=== PATIENT | male | born 1945 | race Caucasian/White ===

== ENCOUNTER 2016-08-02 15:28 | Inpatient (IN) | payer MEDICARE ==
[~2016-08-02] VITALS: Ht 172.7 cm; Wt 57.1 kg
[~2016-08-02 15:28] MED LIST: ALBU6.7H INH; BUME1TAB26 PO; DIGO0.12 PO; GARL200T2 PO; METO-309 PO; MULT-65 PO; POTA10CA PO; SPIRCAP INH
[2016-08-02 15:39] VITALS: BP 109/80; PULSE 89; RESP 17; TEMP 97.8; O2SAT 95
[2016-08-02] MEDS ORDERED: SODIUM CHLORIDE 0.9% FLUSH 5 ML FLUSH IVF PRN ×2 (16:00→20:00)
--- NOTE | 2016-08-02 16:01 | PD ---
HPI Chief Complaint: Chest Pain Time Seen by Provider: 15:53 Travel History International Travel<30 days: No Contact w/Intl Traveler<30days: No Traveled to known affect area: No History of Present Illness HPI 70yo M with PMH of CHF, CAD, ischemic cardiomyopathy was sent here from Dr. Winkler's office for admission and plan for cardiac cath at 8:30am tomorrow. Pt states he had midsternal chest pain today and associated with sob which he always has. +Cough. Denies any fever, n/v, abdominal pain, focal weakness or numbness. Pt had echocardiogram today and was sent her because had EF of 10%. Pt took 2 sublingual nitroglycerin earlier today and states currently chest pain is resolved. Pt did not take aspirin because it causes stomach pain but has taken in before and sometimes occasionally. PFSH Past Medical History Anxiety: Yes Depression: Yes Cancer: No Cardiac Catheterization: Yes Cardiovascular Problems: Yes ([place]) Coronary Artery Disease: Yes Diabetes: No Diminished Hearing: Yes (HEARING AIDS) Diverticulitis: Yes Endocrine: No Gastrointestinal Disorders: Yes (diverticulitis) Genitourinary: Yes (urinary tract infection) Headaches: Yes Hepatitis: No Hiatal Hernia: No Hypertension: Yes Immune Disorder: No Inguinal Hernia: Yes (repaired) Musculoskeletal: Yes (osteoarthritis, previous right shoulder fracture with rotator cuff injury) Neurologic: No Psychiatric: No Reproductive: No Respiratory: Yes (COPD) Myocardial Infarction: Yes Thyroid Disease: No Past Surgical History AICD: No Cardiac Surgery: Yes (cardiac catheterization) Coronary Stent: Yes (X 2) Endocrine Surgery: Yes (parathyroid gland removed) Genitourinary Surgery: Yes (bilateral inguinal hernia repair) Joint Replacement: No Oral Surgery: Yes (tonsillectomy, teeth removed) Pacemaker: No Tonsillectomy: Yes Other Surgery: Yes (bowel resection/bladder repair) Social History Alcohol Use: Yes (1-2 GLASSES OF WINE) Tobacco Use: No (QUIT 1998) Substance Use: No Allergies-Medications (Allergen,Severity, Reaction): Coded Allergies: Warfarin (Verified Allergy, Severe, 06/28/16) FLU LIKE SYMPTOMS Xarelto (Verified Allergy, Severe, 06/28/16) FLU LIKE SYMPTOMS *MDRO Multi-Drug Resistant Organism (Verified Allergy, Unknown, 06/28/16) MRSA Uncoded Allergies: STEROID INJ (Adverse Reaction, Unknown, CONFUSION, DISORIENTATION, 12/08/13) Reported Meds & Prescriptions Reported Meds & Active Scripts Active Reported Torsemide 20 Mg Tab 20 Mg PO DAILY Garlic 200 Mg Tab 200 Mg PO DAILY Multi-Vitamin Daily (Multiple Vitamin) 1 Tab Tab 1 Tab PO DAILY Potassium Chloride ER (Potassium Chloride) 10 Meq Cap 10 Meq PO DAILY Lopressor (Metoprolol Tartrate) 50 Mg Tab 25 Mg PO DAILY Digoxin 0.125 Mg Tab 0.125 Mg PO DAILY Proventil Hfa 6.7 GM Inh (Albuterol Sulfate) 90 Mcg/Act Aer 2 Puff INH Q4-6H PRN Spiriva Handihaler (Tiotropium Inh) 18 Mcg Cap 18 Mcg INH DAILY 1 capsule = 18 mcg Review of Systems Except as stated in HPI: all other systems reviewed are Neg Physical Exam Narrative GENERAL: 70yo M not in distress. SKIN: Warm and dry. HEAD: Atraumatic. Normocephalic. EYES: Pupils equal and round. No scleral icterus. No injection or drainage. ENT: No nasal bleeding or discharge. Mucous membranes pink and moist. NECK: Trachea midline. No JVD. CARDIOVASCULAR: Regular rate and rhythm. No murmur appreciated. RESPIRATORY: No accessory muscle use. Bibasilar crackles. GASTROINTESTINAL: Abdomen soft, non-tender, nondistended. Hepatic and splenic margins not palpable. MUSCULOSKELETAL: No obvious deformities. No clubbing. No cyanosis. No edema. NEUROLOGICAL: Awake and alert. No obvious cranial nerve deficits. Motor grossly within normal limits. Normal speech. PSYCHIATRIC: Appropriate mood and affect; insight and judgment normal. Data Data Last Documented VS Vital Signs Date Time Temp Pulse Resp B/P Pulse Ox O2 Delivery O2 Flow Rate FiO2 08/02/16 19:00 81 17 104/73 96 Room Air 08/02/16 15:39 97.8 Orders Electrocardiogram (08/02/16 ) Basic Metabolic Panel (Bmp) (08/02/16 15:53) Ckmb (Isoenzyme) Profile (08/02/16 15:53) Complete Blood Count With Diff (08/02/16 15:53) Magnesium (Mg) (08/02/16 15:53) Prothrombin Time / Inr (Pt) (08/02/16 15:53) Act Partial Throm Time (Ptt) (08/02/16 15:53) Troponin I (08/02/16 15:53) Chest, Single Ap (08/02/16 15:53) Ecg Monitoring (08/02/16 15:53) Bilateral Bp Monitoring (08/02/16 15:53) Iv Access Insert/Monitor (08/02/16 15:53) Oximetry (08/02/16 15:53) Oxygen Administration (08/02/16 15:53) Sodium Chloride 0.9% Flush (Ns Flush) (08/02/16 16:00) Consult Cardiology (08/02/16 ) B-Type Natriuretic Peptide (08/02/16 16:01) Aspirin (Aspirin) (08/02/16 16:15) Diet Heart Healthy (08/02/16 Dinner) (Hub Use Only)Inp Phy Cons/Ref (08/02/16 17:34) Admit Order (Ed Use Only) (08/02/16 19:43) Labs Laboratory Tests Test 08/02/16 16:35 White Blood Count 8.8 TH/MM3 Red Blood Count 5.72 MIL/MM3 Hemoglobin 17.4 GM/DL Hematocrit 53.3 % Mean Corpuscular Volume 93.1 FL Mean Corpuscular Hemoglobin 30.4 PG Mean Corpuscular Hemoglobin 32.6 % Concent Red Cell Distribution Width 15.9 % Platelet Count 163 TH/MM3 Mean Platelet Volume 9.8 FL Neutrophils (%) (Auto) 84.8 % Lymphocytes (%) (Auto) 6.9 % Monocytes (%) (Auto) 6.4 % Eosinophils (%) (Auto) 0.9 % Basophils (%) (Auto) 1.0 % Neutrophils # (Auto) 7.4 TH/MM3 Lymphocytes # (Auto) 0.6 TH/MM3 Monocytes # (Auto) 0.6 TH/MM3 Eosinophils # (Auto) 0.1 TH/MM3 Basophils # (Auto) 0.1 TH/MM3 CBC Comment DIFF FINAL Differential Comment Prothrombin Time 12.2 SEC Prothromb Time International 1.1 RATIO Ratio Activated Partial 28.2 SEC Thromboplast Time Sodium Level 140 MEQ/L Potassium Level 4.5 MEQ/L Chloride Level 100 MEQ/L Carbon Dioxide Level 32.6 MEQ/L Anion Gap 7 MEQ/L Blood Urea Nitrogen 30 MG/DL Creatinine 1.16 MG/DL Estimat Glomerular Filtration 62 ML/MIN Rate Random Glucose 95 MG/DL Calcium Level 9.7 MG/DL Magnesium Level 2.5 MG/DL Total Creatine Kinase 46 U/L Troponin I 0.04 NG/ML B-Type Natriuretic Peptide 3968 PG/ML Digoxin Level 1.1 NG/ML MDM Medical Decision Making Medical Screen Exam Complete: Yes Emergency Medical Condition: Yes Interpretation(s) EKG: NSR 82bpm. LAD. LBBB. No concordance. Differential Diagnosis NSTEMI vs. CHF exacerbation Narrative Course 70yo M sent here for chest pain work up and plan for cardiac cath tomorrow from Dr. Winkler's office. I discussed case with Dr. Winkler and official consult placed for him. Pt is not in distress upon arrival to ED. Pt had no chest pain and speaking in complete sentences without sob. Pt given aspirin. Labs reviewed, appears dehydrated with elevated H/H and BUN. However, pt has EF of 10% and appears comfortable so did not give IVF. Troponin 0.04. BNP 3968. CXR showed streaky opacity consistent with scarring. No pulmonary edema. Discussed with admitting physician and accepted to medicine service. Diagnosis Primary Impression: CHF exacerbation Qualified Code: I50.23 - Acute on chronic systolic congestive heart failure Admitting Information Admitting Physician Requests: Admit Sia Fong DO Aug 02, 2016 16:00
--- NOTE | 2016-08-02 16:09 | RADRPT ---
EXAM DATE/TIME: 08/02/2016 15:51 [facility] COMPARISON: CHEST PA & LAT, June 28, 2016, 16:07. CHEST SINGLE AP, December 11, 2013, 12:52. INDICATIONS : Chest pain MEDICAL HISTORY : Congestive heart failure. Chronic obstructive pulmonary disease. SURGICAL HISTORY : Cardiac stents ENCOUNTER: Initial ACUITY: 1 day PAIN SCORE: 2/10 LOCATION: Bilateral chest FINDINGS: A single AP erect portable view of the chest was obtained and demonstrates mild to moderate cardiomeg adam. There is streaky opacity again noted at both lung bases most consistent with scarring. There is no perihilar edema. Atherosclerotic changes are present in the aorta. There are overlying electrocard iogram leads. The bony thorax is intact. CONCLUSION: 1. Streaky opacity of the lung bases most consistent with scarring. 2. Cardiomegaly with no evidence of pulmonary edema. Jay Mendez MD on August 02, 2016 at 16:07 Board Certified Radiologist. This report was verified electronically.
[2016-08-02 16:11] VITALS: BP_SYST 11; BP_SYST 92; BP_DIAS 63; BP_DIAS 81
[2016-08-02] MEDS ORDERED: ASPIRIN 325 MG TAB PO ONE (16:15)
[2016-08-02] MEDS ORDERED: TORS20TA PO (16:54)
[2016-08-02 17:17] LABS: AUTOMATED NEUTROPHIL # 7.4 TH/MM3 (1.8-7.7); BASOPHIL # 0.1 TH/MM3 (0-0.2); EOSINOPHIL # 0.1 TH/MM3 (0-0.4); EOSINOPHIL % 0.9 % (0.0-4.0); HEMATOCRIT 53.3 % (39.0-51.0); HEMO FLAGS DIFF FINAL; LYMPH % 6.9 % (9.0-44.0); LYMPHOCYTE # 0.6 TH/MM3 (1.0-4.8); MEAN CELL VOLUME 93.1 FL (80.0-100.0); MEAN CORPUSCULAR HEMOGLOBIN 30.4 PG (27.0-34.0); MEAN CORPUSCULAR HGB CONC 32.6 % (32.0-36.0); MONO % 6.4 % (0.0-8.0); NEUT % 84.8 % (16.0-70.0); PLATELET COUNT 163 TH/MM3 (150-450); RED BLOOD COUNT 5.72 MIL/MM3 (4.50-5.90); RED CELL DISTRIBUTION WIDTH 15.9 % (11.6-17.2); WHITE BLOOD COUNT 8.8 TH/MM3 (4.0-11.0)
[2016-08-02 17:30] LABS: BICARBONATE 32.6 MEQ/L (21.0-32.0); MAGNESIUM 2.5 MG/DL (1.5-2.5); POTASSIUM 4.5 MEQ/L (3.5-5.1)
[2016-08-02 17:34] LABS: APTT (PATIENT) 28.2 SEC (24.3-30.1); INTERNATIONAL NORMALIZED RATIO 1.1 RATIO; PROTHROMBIN TIME - PATIENT 12.2 SEC (9.8-11.6)
[2016-08-02 18:00] VITALS: BP 99/69; PULSE 80; RESP 17; O2SAT 95
[2016-08-02 19:00] VITALS: BP 104/73; PULSE 81; RESP 17; O2SAT 96
[2016-08-02] MEDS ORDERED: ALBUTEROL SULFATE 90 MCG/ACT HFA 8 GM INHALER INH PRN (20:00)
[2016-08-02] MEDS ORDERED: HEPARIN SODIUM - SQ 10,000 UNITS/ML VIAL SQ SCH (20:00)
[2016-08-02] MEDS ORDERED: SODIUM CHLORIDE 0.9% FLUSH 5 ML FLUSH IVF SCH (21:00)
[2016-08-02 21:10] VITALS: O2SAT 96
--- NOTE | 2016-08-02 21:59 | HHI.HP ---
[facility] Service [place] [facility] Primary Care Physician Sravan Aguilar, PhD, MD Admission Diagnosis Chest pain, CHF exacerbation Diagnoses: Chief Complaint: Shortness of breath, chest pain Travel History International Travel<30 Days: No Contact w/Intl Traveler <30 Da: No Traveled to Known Affected Are: No History of Present Illness 70-year-old male with a history of DC, CHF and diverticulosis presented to the ED with increasing shortness of breath and chest pain a duration of the last few weeks. Patient states for the last 2 weeks he has had shortness of breath that lasts on and off all day. He states some days are worse than others and it has caused him to be very restless. He says along with the shortness of breath he does experience chest pain that feels like intense pressure in the middle of his chest, he denies any radiation to his arm or jaw. He went to visit his nursing home aide Dr. Winkler today who sent him to the ED for a cardiac catheter in the a.m. Patient also complains of increased weight loss over the last few months, and it has also increased since being started on torsemide. He denies any appetite changes. Review of Systems Constitutional: COMPLAINS OF: Weight loss, DENIES: Fever, Chills Respiratory: COMPLAINS OF: Shortness of breath, DENIES: Cough, Wheezing, Sputum production Cardiovascular: COMPLAINS OF: Chest pain, Dyspnea on Exertion, Orthopnea, DENIES: Lower Extremity Edema Gastrointestinal: DENIES: Constipation, Diarrhea, Nausea, Vomiting Genitourinary: DENIES: Hematuria, Dysuria Musculoskeletal: DENIES: Back pain, Neck pain Integumentary: DENIES: Rash Hematologic/lymphatic: DENIES: Lymphadenopathy Immunologic/allergic: DENIES: Urticaria Neurologic: COMPLAINS OF: Localized weakness, Poor Balance, DENIES: Headache Past Family Social History Past Medical History CHF: EF 10% DC in 2008 Diverticulitis 2013 Past Surgical History Stent placement 2 Tonsillectomy Hernia repair 2 Parathyroidectomy Reported Medications Reported Meds & Active Scripts Active Reported Torsemide 20 Mg Tab 20 Mg PO DAILY Garlic 200 Mg Tab 200 Mg PO DAILY Multi-Vitamin Daily (Multiple Vitamin) 1 Tab Tab 1 Tab PO DAILY Potassium Chloride ER (Potassium Chloride) 10 Meq Cap 10 Meq PO DAILY Lopressor (Metoprolol Tartrate) 50 Mg Tab 25 Mg PO DAILY Digoxin 0.125 Mg Tab 0.125 Mg PO DAILY Proventil Hfa 6.7 GM Inh (Albuterol Sulfate) 90 Mcg/Act Aer 2 Puff INH Q4-6H PRN Spiriva Handihaler (Tiotropium Inh) 18 Mcg Cap 18 Mcg INH DAILY 1 capsule = 18 mcg Allergies: Coded Allergies: Warfarin (Verified Allergy, Severe, 06/28/16) FLU LIKE SYMPTOMS Xarelto (Verified Allergy, Severe, 06/28/16) FLU LIKE SYMPTOMS *MDRO Multi-Drug Resistant Organism (Verified Allergy, Unknown, 06/28/16) MRSA Uncoded Allergies: STEROID INJ (Adverse Reaction, Unknown, CONFUSION, DISORIENTATION, 12/08/13) Active Ordered Medications Current Medications Medications (Trade) Dose Ordered Sig/Awa Route Start Time Stop Time Status Last Admin (Proair Hfa Inh) 2 puff Q4HR PRN INH 08/02/16 20:00 (Lanoxin) 0.125 mg DAILY PO 08/03/16 09:00 (Lopressor) 25 mg DAILY PO 08/03/16 09:00 (Theragran) 1 tab DAILY PO 08/03/16 09:00 (KCl) 10 meq DAILY PO 08/03/16 09:00 (Spiriva Inh) 18 mcg DAILY INH 08/03/16 09:00 (Demadex) 20 mg DAILY PO 08/03/16 09:00 (NS Flush) 2 ml BID IVF 08/02/16 21:00 08/02/16 20:31 (NS Flush) 2 ml UNSCH PRN IVF 08/02/16 20:00 (Heparin Inj) 5,000 units Q12H SQ 08/02/16 20:00 08/02/16 20:30 Family History Dad of an unknown cancer Social History Tobacco use: 2008, prior to this he used to smoke 4ppd Alcohol use: A few beers a day, but none in the last few months Illicit drug use: Denies Physical Exam Vital Signs Vital Signs Date Time Temp Pulse Resp B/P Pulse Ox O2 Delivery O2 Flow Rate FiO2 08/02/16 21:10 96 21 08/02/16 19:00 81 17 104/73 96 Room Air 08/02/16 18:00 80 17 99/69 95 08/02/16 16:11 111/81 92/63 08/02/16 15:39 97.8 89 17 109/80 95 Physical Exam GENERAL: This is a well-nourished, well-developed patient, in no apparent distress. SKIN: No rashes, ecchymoses or lesions. Cool and dry. HEAD: Atraumatic. Normocephalic. EYES: Pupils equal round and reactive. ENT: Nose without bleeding, purulent drainage or septal hematoma. Airway patent. NECK: Trachea midline. No JVD CARDIOVASCULAR: Regular rate and rhythm without murmurs, gallops, or rubs. RESPIRATORY: Left lower base crackles, No wheezes, rales, or rhonchi. GASTROINTESTINAL: Abdomen soft, non-tender, nondistended. MUSCULOSKELETAL: Extremities without clubbing, cyanosis, or edema. No joint tenderness, effusion, or edema noted. No calf tenderness. NEUROLOGICAL: Awake and alert. Motor and sensory grossly within normal limits.Normal speech. Laboratory Laboratory Tests Test 08/02/16 16:35 White Blood Count 8.8 Red Blood Count 5.72 Hemoglobin 17.4 Hematocrit 53.3 Mean Corpuscular Volume 93.1 Mean Corpuscular Hemoglobin 30.4 Mean Corpuscular Hemoglobin 32.6 Concent Red Cell Distribution Width 15.9 Platelet Count 163 Mean Platelet Volume 9.8 Neutrophils (%) (Auto) 84.8 Lymphocytes (%) (Auto) 6.9 Monocytes (%) (Auto) 6.4 Eosinophils (%) (Auto) 0.9 Basophils (%) (Auto) 1.0 Neutrophils # (Auto) 7.4 Lymphocytes # (Auto) 0.6 Monocytes # (Auto) 0.6 Eosinophils # (Auto) 0.1 Basophils # (Auto) 0.1 CBC Comment DIFF FINAL Differential Comment Prothrombin Time 12.2 Prothromb Time International 1.1 Ratio Activated Partial 28.2 Thromboplast Time Sodium Level 140 Potassium Level 4.5 Chloride Level 100 Carbon Dioxide Level 32.6 Anion Gap 7 Blood Urea Nitrogen 30 Creatinine 1.16 Estimat Glomerular Filtration 62 Rate Random Glucose 95 Calcium Level 9.7 Magnesium Level 2.5 Total Creatine Kinase 46 Troponin I 0.04 B-Type Natriuretic Peptide 3968 Result Diagram: 08/02/16 1635 08/02/16 1635 Imaging Last Impressions Chest X-Ray 08/02/16 1553 Signed Impressions: Service Date/Time: July 15:51 - CONCLUSION: 1. Streaky opacity of the lung bases most consistent with scarring. 2. Cardiomegaly with no evidence of pulmonary edema. Jay Mendez MD Assessment and Plan Problem List: (1) CHF exacerbation ICD Code: I50.9 Status: Acute Assessment and Plan 70 with a history of CHF, DC and diverticulitis presented with: Coronary artery disease/acute on chronic systolic CHF Exacerbation Images reviewed chest x-ray shows streaky opacity of the lung bases most consistent with scarring. Cardiomegaly with no evidence of pulmonary edema. Labs reviewed BNP 3968 -Consult Dr. Winkler for cardiac catheter in a.m. -Nothing by mouth -Reorder home medications torsemide, metoprolol. Hold off on further IV diuretics given borderline low blood pressure. DVT prophylaxis: Heparin Written by Mitzi PIKE, acting as scribe for Dr. Mendieta on 08/02/16 at 2048. The documentation accurately reflects the work performed [id number] by me on 08/03/16 at 2048. Code Status Full Discussed Condition With Patient Physician Certification 2 Midnight Certification Type: Admission for Inpatient Services Order for Inpatient Services The services are ordered in accordance with Medicare regulations or non- Medicare payer requirements, as applicable. In the case of services not specified as inpatient-only, they are appropriately provided as inpatient services in accordance with the 2-midnight benchmark. Estimated LOS (days): 2 days is the estimated time the patient will need to remain in the hospital, assuming treatment plan goals are met and no additional complications. Post-Hospital Plan: Home Problem Qualifiers (1) CHF exacerbation: Qualified Code: I50.23 - Acute on chronic systolic congestive heart failure Mitzi Ferguson Aug 02, 2016 21:59 Danielito Mendieta MD Aug 03, 2016 03:16
[2016-08-03] VITALS (13 sets, daily range): BP systolic 86–111; BP diastolic 60–85; PULSE 86–106; RESP 16–18; TEMP 97.5–98.8; O2SAT 93–99
[2016-08-03 05:08] LABS: HEMATOCRIT 49.6 % (39.0-51.0); MEAN CELL VOLUME 93.8 FL (80.0-100.0); MEAN CORPUSCULAR HEMOGLOBIN 30.4 PG (27.0-34.0); MEAN CORPUSCULAR HGB CONC 32.4 % (32.0-36.0); PLATELET COUNT 151 TH/MM3 (150-450); RED BLOOD COUNT 5.29 MIL/MM3 (4.50-5.90); RED CELL DISTRIBUTION WIDTH 15.7 % (11.6-17.2); REVIEW FLAG FINAL; WHITE BLOOD COUNT 9.5 TH/MM3 (4.0-11.0)
[2016-08-03 05:21] LABS: BICARBONATE 26.7 MEQ/L (21.0-32.0); POTASSIUM 4.7 MEQ/L (3.5-5.1)
[2016-08-03] MEDS ORDERED: SODIUM CHLOR 0.9% 1000 ML INJ 1,000 ML IV SCH ×2 (07:04→10:00)
[2016-08-03] MEDS ORDERED: DIAZEPAM 5 MG TAB PO SCH (07:15)
[2016-08-03] MEDS ORDERED: diphenhydrAMINE HCL 50 MG CAP PO SCH (07:15)
[2016-08-03] MEDS ORDERED: PILL SPLITTER OTHER PRN (07:30)
[2016-08-03] MEDS ORDERED: MIDAZOLAM HCL 2 MG/2 ML VIAL ONE (08:36)
[2016-08-03] MEDS ORDERED: METOPROLOL TARTRATE 25 MG TAB PO SCH (09:00)
[2016-08-03] MEDS ORDERED: ONDANSETRON HCL 4 MG/2 ML VIAL IV PRN (09:45)
[2016-08-03] MEDS ORDERED: SODIUM CHLORIDE 0.9% FLUSH 5 ML FLUSH IVF PRN (09:45)
[2016-08-03] MEDS ORDERED: MISC INFORMATION XX ONE (09:45)
--- NOTE | 2016-08-03 09:46 | MB ---
cc: NAOMI COLLAZO M.D. DATE OF CONSULTATION 08/03/2016 REASON FOR CONSULTATION Evaluation of angina. CHIEF COMPLAINT Chest pain HISTORY OF PRESENT ILLNESS Jaron Sandoval a 70-year-old man with known ischemic heart disease. He is referred to me by Dr. Karsten Aguilar for CHF. I was able to get him out of CHF with medications. He had an echo done in my office yesterday showing an ejection fraction of only 10%. Of concern, the patient started having angina a month ago and in the past two weeks has been having angina at rest on a daily basis described as a severe pressure in the center of his chest associated with shortness of breath. The patient has a history an old myocardial infarction in 2008 with a PTCA and stent. We do not have any further records than that. PAST MEDICAL HISTORY Includes: 1. CHF 2. Coronary artery disease 3. Deep vein thrombosis 4. Diverticula 5. Ischemic cardiomyopathy with EF only 10% 6. Left bundle-branch block 7. Had a MRSA infection July 2013. 8. Myocardial infarction 2008 9. Previous pulmonary embolism 10. COPD PAST SURGICAL HISTORY Includes: 1. Bladder revision 2. Bowel resection July 2013 3. Fistula repair 4. Hernia repair 5. Parathyroidectomy 6. Stent in 2008 7. Tonsillectomy ALLERGIES Include STEROIDS, WARFARIN AND XARELTO WHICH LEAD TO ITCHING. MEDICATIONS Include: 1. Aspirin 81 mg 2. Digoxin 0.125 mg 1/2 tablet every other day 3. Metoprolol 12-1/2 mg b.i.d. 4. Torsemide 20 mg daily 5. Proventil inhaler 6. Spiriva inhaler FAMILY HISTORY Positive for cancer in the father. SOCIAL HISTORY The patient smoked from age 12 to 63. He is retired. He is and lives with a significant other. He spent six years in the [employer]. REVIEW OF SYSTEMS Notable for weight loss, otherwise unremarkable. PHYSICAL EXAM Physical exam reveals a thin white male in no acute distress. VITAL SIGNS: Charted. Blood pressure runs low typically 90s. HEENT: Exam is unremarkable. NECK: Exam shows moderate JVD. CHEST: Clear to auscultation. CARDIAC: Exam shows a left parasternal lift. There is a soft S1 normal S2, regular rate and rhythm. There is a soft S3 present and a grade 2/6 systolic murmur. ABDOMEN: Soft and nontender. EXTREMITIES: No clubbing, cyanosis or edema. EKG shows left bundle-branch block. His lab work, initial hematocrit of 53.3, 49.6 on repeat. Troponin was 0.04. BNP elevated at 396. BUN 36, creatinine 1.04. Digoxin level 1.1. Chest x-ray is showing streaky opacity in the lung bases most consistent with scarring, cardiomegaly without evidence of pulmonary edema. IMPRESSION This is a 70-year-old man with extremely severe LV dysfunction now having severe angina at rest, i.e. class IV angina. He has class III-IV CHF as well. PLAN Diagnostic cath, possible intervention. Informed consent has been obtained. Further therapy to be determined. MD JIMBO Hernandez/REZA /8:44 AM /9:28 AM
--- NOTE | 2016-08-03 09:56 | MA ---
cc: NAOMI COLLAZO M.D., WESLEY M.D. DATE 08/03/2016 PROCEDURE PERFORMED Left heart catheterization, left ventriculography, coronary angiography BRIEF HISTORY Jaron Sandoval is a 70-year-old man who had an acute myocardial infarction in 2008 with bifurcation stenting of the LAD and diagonal. He came to see me for severe CHF. His CHF is now compensated. Echo done yesterday showed an EF of only 10%. He has been having two weeks of rest angina. Troponin was normal. DESCRIPTION OF PROCEDURE The patient was brought to the cardiac mason tender restoration labor in a fasting state. The right groin was prepped and draped in a sterile fashion. Using 1% lidocaine for local anesthesia, a 6-1/2 German sheath was easily inserted into the right femoral artery. Left ventricular pressure was then recorded using a pigtail catheter followed by ventriculography and then a pullback. Coronary angiography was completed using a left 4.5 Sarah for the left coronary artery and a 3DRC for the right coronary artery. Films were studied. Medical therapy was elected. Angiography of the right femoral artery was obtained via the sheath followed by an uncomplicated Angio-Seal closure. There were no complications. FINDINGS HEMODYNAMICS Left ventricular pressure is 93/8 with an end-diastolic pressure elevated at 21. Aortic pressure is 95/70 with a mean of 82. LEFT VENTRICULOGRAPHY Left ventriculography shows a massively dilated left ventricle that is somewhat spherically shaped with severe global hypokinesis. The worst segment is the anterolateral segment which is akinetic. CORONARY ANGIOGRAPHY 1. The left main coronary artery appears normal. It bifurcates into the LAD and circumflex vessels. 2. The LAD has some smooth proximal narrowing in the 30-40% range. Inside a previously placed stent, the diagonal branch was also stented up to the ostium. The ostium of the diagonal branch has 60-70% stenosis. The LAD and its mid to distal segment has a second 40% stenosis. The diagonal branch demonstrates 20-30% mid disease and has a bifurcation. 3. The circumflex artery has proximal irregularities in the 25% range. 4. The right coronary artery is dominant. This vessel has a 40% proximal stenosis just beyond a bend and just after the first of two acute marginal branches. There is also some additional 25% disease in the late proximal and early mid right coronary vessel. Distally, the right coronary artery has 25% irregularities. The right coronary artery is dominant and gives off a large posterior descending artery and posterolateral branches which are free of disease. CONCLUSION 1. Elevated left ventricular end-diastolic pressure. 2. Critically impaired LV function. 3. Mild to moderate coronary artery disease. The worst being the ostial diagonal branch for which medical therapy was elected. PLAN Medical management of his coronary disease. He needs a biventricular AICD because he has a left bundle-branch block, class IV heart failure, and is on maximal medical therapy with inability to add further medications due to low blood pressure. We will consult Dr. Ruiz for biventricular AICD. MD JIMBO Hernandez/REZA /9:27 AM /9:42 AM
[2016-08-03] MEDS ORDERED: IOHEXOL 350 MG/ML 100 ML BTL (for Cath Lab) OTHER ONE (10:02)
--- NOTE | 2016-08-03 11:29 | HHI.PR ---
Subjective Remarks had cardiac cath earlier today. now resting comfortably with no distress. no sob. minimal chest discomfort. Objective Vitals Vital Signs Date Time Temp Pulse Resp B/P Pulse Ox O2 Delivery O2 Flow Rate FiO2 08/03/16 07:20 95 Room Air 08/03/16 07:20 92 18 95/74 95 Room Air 08/03/16 04:30 90 16 93/67 97 Room Air 08/03/16 00:30 92 16 98/71 96 Room Air 08/02/16 21:10 96 21 08/02/16 19:00 81 17 104/73 96 Room Air 08/02/16 18:00 80 17 99/69 95 08/02/16 16:11 111/81 92/63 08/02/16 15:39 97.8 89 17 109/80 95 I/O 08/02/16 08/02/16 08/02/16 08/03/16 08/03/16 08/03/16 07:00 15:00 23:00 07:00 15:00 23:00 Output Total 200 ml Balance -200 ml Output Urine Total 200 ml # Voids 1 Result Diagram: 08/03/16 0430 08/03/16 0430 Imaging Last Impressions Chest X-Ray 08/02/16 1553 Signed Impressions: Service Date/Time: July 15:51 - CONCLUSION: 1. Streaky opacity of the lung bases most consistent with scarring. 2. Cardiomegaly with no evidence of pulmonary edema. Jay Mendez MD Objective Remarks GENERAL: This is a well-nourished, well-developed patient, in no apparent distress. CARDIOVASCULAR: Regular rate and regular rhythm without murmurs, gallops, or rubs. RESPIRATORY: Clear to auscultation. Breath sounds equal bilaterally. No wheezes , rales, or rhonchi. GASTROINTESTINAL: Abdomen soft, non-tender, nondistended. Normal, active bowel sounds MUSCULOSKELETAL: Extremities without clubbing, cyanosis, or edema. NEURO: Alert & Oriented x4 to person, place, time, situation. Moves all ext x4 Procedures cardiac cath. Medications and IVs Current Medications IV Flush (NS Flush) 2 ml UNSCH PRN IVF FLUSH AFTER USING IV ACCESS; Start 08/02 at 16:00; Stop 08/02/16 at 20:00; Status DC Aspirin (Aspirin) 325 mg ONCE ONCE PO Last administered on 08/02/16 16:59; Start 08/02/16 at 16:15; Stop 08/02/16 at 16:16; Status DC Albuterol Sulfate (Proair Hfa Inh) 2 puff Q4HR PRN INH SHORTNESS OF BREATH; Start 08/02/16 at 20:00 Digoxin (Lanoxin) 0.125 mg DAILY PO ; Start 08/03/16 at 09:00 Metoprolol Tartrate (Lopressor) 25 mg DAILY PO ; Start 08/03/16 at 09:00; Stop 08/03/16 at 09:00; Status DC Multivitamins (Theragran) 1 tab DAILY PO ; Start 08/03/16 at 09:00 Potassium Chloride (KCl) 10 meq DAILY PO ; Start 08/03/16 at 09:00 Tiotropium [place] (Spiriva Inh) 18 mcg DAILY INH ; Start 08/03/16 at 09:00 Torsemide (Demadex) 20 mg DAILY PO ; Start 08/03/16 at 09:00 IV Flush (NS Flush) 2 ml BID IVF Last administered on 08/02/16 20:31; Start at 21:00; Stop 08/03/16 at 10:08; Status DC IV Flush (NS Flush) 2 ml UNSCH PRN IVF FLUSH AFTER USING IV ACCESS; Start 08/02 at 20:00; Stop 08/03/16 at 10:08; Status DC Heparin Sodium (Porcine) (Heparin Inj) 5,000 units Q12H SQ Last administered on 08/02/16 20:30; Start 08/02/16 at 20:00; Stop 08/03/16 at 10:10; Status DC Metoprolol Tartrate (Lopressor) 12.5 mg BID PO ; Start 08/03/16 at 09:00 Nitroglycerin 0.5 inch 0.5 inch Q8HR TOPICAL ; Start 08/03/16 at 14:00 Sodium Chloride (NS 1000 ml Inj) 1,000 ml @ 30 mls/hr Q24H IV ; Start 08/03/16 at 07:04; Stop 08/03/16 at 10:08; Status DC Diphenhydramine HCl (Benadryl) 25 mg STEAM BONE PRESS TENDER PO ; Start 08/03/16 at 07:15; Stop 08/07/16 at 07:14 Diazepam (Valium) 5 mg STEAM BONE PRESS TENDER PO ; Start 08/03/16 at 07:15; Stop 08/07/16 at 07:14 Miscellaneous (Pill Splitter) 1 ea UNSCH PRN OTHER SEE LABEL COMMENTS; Start at 07:30 Midazolam HCl 2 mg 2 mg STK-MED ONCE .ROUTE Last administered on 08/03/16t 08: 36; Start 08/03/16 at 08:36; Stop 08/03/16 at 08:37; Status DC Sodium Chloride (NS 1000 ml Inj) 1,000 ml @ 83 mls/hr Q12H3M IV ; Start at 10:00; Stop 08/03/16 at 10:09; Status DC IV Flush (NS Flush) 2 ml BID IVF ; Start 08/03/16 at 21:00 IV Flush (NS Flush) 2 ml UNSCH PRN IVF FLUSH AFTER USING IV ACCESS; Start 08/03 at 09:45 Miscellaneous Information 1 ONCE ONCE XX ; Start 08/03/16 at 09:45; Stop at 10:09; Status DC Ondansetron HCl (Zofran Inj) 4 mg Q4H PRN IV NAUSEA; Start 08/03/16 at 09:45 Iohexol (OMNIPAQUE 350 INJ (Medical Chemist)) 100 ml STK-MED ONCE OTHER ; Start at 10:02; Stop 08/03/16 at 10:03; Status DC A/P Assessment and Plan A/P Coronary artery disease/acute on chronic systolic CHF Exacerbation Images reviewed chest x-ray shows streaky opacity of the lung bases most consistent with scarring. Cardiomegaly with no evidence of pulmonary edema. -s/p cardiac cath with mild to moderate coronary artery disease -resumed home medications torsemide, metoprolol and digoxin. Hold off on further IV diuretics given borderline low blood pressure. - consulted for AICD placement DVT prophylaxis: Heparin on hold for procedures. Jimmy Gatica MD Aug 03, 2016 11:29
[2016-08-03] MEDS: NITROGLYCERIN 2% OINT 1 GM PACKET TOPICAL SCH ×2 (14:00→20:10)
[2016-08-03] MEDS: SODIUM CHLORIDE 0.9% FLUSH 5 ML FLUSH IVF SCH (20:10)
[2016-08-03] MEDS: METOPROLOL TARTRATE 25 MG TAB PO SCH (20:10)
--- NOTE | 2016-08-03 22:53 | EKG ---
Date Performed: 08/02/2016 Time Performed: 15:54:16 PTAGE: 70 years EKG: Sinus rhythm LEFT ATRIAL ENLARGEMENT MARKED LEFT AXIS DEVIATION LEFT BUNDLE BRANCH BLOCK ABNORMAL ECG PREVIOUS TRACING : 06/28/2016 17.44 DOCTOR: Faisal Ruiz Interpretating Date/Time 08/03/2016 22:47:38
[2016-08-04] VITALS (27 sets, daily range): BP systolic 80–101; BP diastolic 41–76; PULSE 66–100; RESP 16–19; TEMP 97.7–98.2; O2SAT 94–96
[2016-08-04] MEDS: NITROGLYCERIN 2% OINT 1 GM PACKET TOPICAL SCH ×4 (04:11→21:29)
[2016-08-04 04:58] LABS: AUTOMATED NEUTROPHIL # 6.2 TH/MM3 (1.8-7.7); BASOPHIL # 0.1 TH/MM3 (0-0.2); BASOPHIL % 1.4 % (0.0-2.0); EOSINOPHIL # 0.2 TH/MM3 (0-0.4); HEMO FLAGS DIFF FINAL; LYMPH % 10.1 % (9.0-44.0); LYMPHOCYTE # 0.8 TH/MM3 (1.0-4.8); MEAN CELL VOLUME 93.2 FL (80.0-100.0); MEAN CORPUSCULAR HEMOGLOBIN 30.7 PG (27.0-34.0); MEAN CORPUSCULAR HGB CONC 32.9 % (32.0-36.0); MONO % 9.3 % (0.0-8.0); NEUT % 77.2 % (16.0-70.0); PLATELET COUNT 137 TH/MM3 (150-450); RED BLOOD COUNT 5.25 MIL/MM3 (4.50-5.90)
[2016-08-04 05:24] LABS: BICARBONATE 30.2 MEQ/L (21.0-32.0); POTASSIUM 4.3 MEQ/L (3.5-5.1)
--- NOTE | 2016-08-04 07:06 | MB ---
cc: JESSICA BURT M.D. DATE OF CONSULTATION: 08/03/2016 REASON FOR CONSULTATION: Congestive heart failure for electrophysiology study and biventricular pacer, defibrillator insertion. Mr. Sandoval is a 70-year-old gentleman with history of coronary artery disease, coronary bypass grafting, a ejection fraction of 10%, previous myocardial infarction in 2008. Since then the patient manages a very low ejection fraction. Because of blood pressure apparently medication can be of titrate. He was admitted due to chest pain, left heart catheterization was done by Dr. Winkler, that indicated no significant occlusion. I was consulted for further evaluation and management. The chart was reviewed. The patient was evaluated. ALLERGIES WASPS IRON XARELTO SOCIAL HISTORY currently negative for smoking. FAMILY HISTORY Noncontributory to his current medical condition. MEDICATIONS AT HOME He was on 1. Aspirin. 2. Digoxin. 3. Metoprolol 4. Torsemide 5. Spiriva inhaler. REVIEW OF SYSTEMS Refers shortness of breath on minimal activity but no chest pain or discomfort. No fever. PHYSICAL EXAMINATION: IN GENERAL: Physical exam, fully oriented. VITAL SIGNS: His blood pressure is 99/79, pulse 86, respiratory rate 20. LUNGS: Ventilated CARDIOVASCULAR SYSTEM: S1-S2 regular, episode of tachycardia. ABDOMEN: Soft. No mass. EXTREMITIES: No edema. RADIOLOGIC: Electrocardiogram sinus rhythm. The left bundle-branch block, PVCs, QRS around 140 milliseconds. LABORATORY DATA Hemoglobin 601, white blood cell 9.5, potassium 4.7, creatinine 1.04. BNP close to 4000, INR 1.1. ASSESSMENT AND RECOMMENDATIONS Mr. Sandoval has congestive heart failure, cardiomyopathy. Gentleman is not an ZEINAB Peter because unable to tolerate that because of blood pressure. He can tolerate metoprolol 12.5 mg a day with just add yesterday 12.5 mg twice a day. He has heart failure for years. He is on optimal medical management he can tolerate. He is a very high risk for sudden . Ejection fraction is 10%. The gentleman going need a electrophysiology study and biventricular pacer defibrillator implantation for sudden prevention and resynchronization therapy. The risks, the nature and the benefit of the procedure are clearly stated to him. The risks include pneumothorax, cardiac perforation, stroke and even . He understands and agreed to proceed. I am going to initiate also at a lower dose once a day instead of twice a day. If she can maintain systolic blood pressure above 90 then I will switch to twice a day. Sia melgar is off care. Prognosis guarded. I will monitor him during hospitalization. MD KATHERINE Betancourt/stewart /5:23 PM /6:54 AM
[2016-08-04] MEDS: DIGOXIN 0.125 MG TAB PO SCH (08:48)
[2016-08-04] MEDS: METOPROLOL TARTRATE 25 MG TAB PO SCH ×2 (08:48→21:00)
[2016-08-04] MEDS: TORSEMIDE 20 MG TAB PO SCH (08:49)
[2016-08-04] MEDS: SACUBITRIL/VALSARTAN 24 MG-26 MG TAB PO SCH (08:49)
[2016-08-04] MEDS: MULTIVITAMIN TAB PO SCH (08:51)
[2016-08-04] MEDS: SODIUM CHLORIDE 0.9% FLUSH 5 ML FLUSH IVF SCH ×2 (08:52→21:00)
[2016-08-04] MEDS: POTASSIUM CHLORIDE 10 MEQ CAP PO SCH (08:52)
[2016-08-04] MEDS: TIOTROPIUM BROMIDE 18 MCG INH INH SCH (09:46)
--- NOTE | 2016-08-04 10:13 | PD.CARD.PN ---
Subjective Subjective Remarks No chest pain, no shortness of breath Objective Medications Current Medications Medications (Trade) Dose Ordered Sig/Awa Route Start Time Stop Time Status Last Admin (Proair Hfa Inh) 2 puff Q4HR PRN INH 08/02/16 20:00 (Lanoxin) 0.125 mg DAILY PO 08/03/16 09:00 08/04/16 08:48 (Theragran) 1 tab DAILY PO 08/03/16 09:00 08/04/16 08:51 (KCl) 10 meq DAILY PO 08/03/16 09:00 08/04/16 08:52 (Spiriva Inh) 18 mcg DAILY INH 08/03/16 09:00 08/04/16 09:46 (Demadex) 20 mg DAILY PO 08/03/16 09:00 08/04/16 08:49 (Lopressor) 12.5 mg BID PO 08/03/16 09:00 08/04/16 08:48 (Nitroglycerin 2% Oint) 0.5 inch Q8HR TOPICAL 08/03/16 14:00 08/03/16 14:00 (Pill Splitter) 1 ea UNSCH PRN OTHER 08/03/16 07:30 (Zofran Inj) 4 mg Q4H PRN IV 08/03/16 09:45 (Entresto 24-26 Mg) 1 tab DAILY PO 08/04/16 09:00 08/04/16 08:49 Vital Signs / I&O Vital Signs Date Time Temp Pulse Resp B/P Pulse Ox O2 Delivery O2 Flow Rate FiO2 08/04/16 07:00 84 08/04/16 06:00 84 08/04/16 05:00 86 08/04/16 04:00 87 08/04/16 03:00 86 08/04/16 03:00 97.7 85 16 90/50 94 08/04/16 02:00 88 08/04/16 01:00 87 08/04/16 00:00 84 08/03/16 23:00 89 08/03/16 23:00 98.1 89 16 86/60 94 08/03/16 22:00 94 08/03/16 21:08 95 08/03/16 21:00 97 08/03/16 20:00 98 08/03/16 19:00 106 08/03/16 19:00 98.8 97 16 111/73 96 08/03/16 18:40 18 106/76 94 08/03/16 15:20 97.7 86 18 99/79 93 08/03/16 14:20 97.8 95 18 109/85 95 08/03/16 13:34 97.5 89 18 100/72 99 I/O 08/03/16 08/03/16 08/03/16 08/04/16 08/04/16 08/04/16 07:00 15:00 23:00 07:00 15:00 23:00 Intake Total 930 ml 240 ml Output Total 200 ml Balance -200 ml 930 ml 240 ml Intake Oral 480 ml 240 ml IV Total 450 ml Output Urine Total 200 ml # Voids 1 5 2 Physical Exam GENERAL: NAD SKIN: Warm and dry. HEAD: Atraumatic. Normocephalic. EYES: Pupils equal and round. No scleral icterus. No injection or drainage. ENT: No nasal bleeding or discharge. Mucous membranes pink and moist. NECK: Trachea midline. No JVD. CARDIOVASCULAR: Regular rate and rhythm. RESPIRATORY: No accessory muscle use. Minimal rales lower lobes GASTROINTESTINAL: Abdomen soft, non-tender, nondistended. Hepatic and splenic margins not palpable. MUSCULOSKELETAL: Extremities without clubbing, cyanosis, or edema. No obvious deformities. NEUROLOGICAL: Awake and alert. No obvious cranial nerve deficits. Motor grossly within normal limits. Five out of 5 muscle strength in the arms and legs. Normal speech. PSYCHIATRIC: Appropriate mood and affect; insight and judgment normal. Laboratory Laboratory Tests Test 08/04/16 04:27 White Blood Count 8.0 TH/MM3 Red Blood Count 5.25 MIL/MM3 Hemoglobin 16.1 GM/DL Hematocrit 49.0 % Mean Corpuscular Volume 93.2 FL Mean Corpuscular Hemoglobin 30.7 PG Mean Corpuscular Hemoglobin 32.9 % Concent Red Cell Distribution Width 16.0 % Platelet Count 137 TH/MM3 Mean Platelet Volume 9.5 FL Neutrophils (%) (Auto) 77.2 % Lymphocytes (%) (Auto) 10.1 % Monocytes (%) (Auto) 9.3 % Eosinophils (%) (Auto) 2.0 % Basophils (%) (Auto) 1.4 % Neutrophils # (Auto) 6.2 TH/MM3 Lymphocytes # (Auto) 0.8 TH/MM3 Monocytes # (Auto) 0.7 TH/MM3 Eosinophils # (Auto) 0.2 TH/MM3 Basophils # (Auto) 0.1 TH/MM3 CBC Comment DIFF FINAL Differential Comment Sodium Level 141 MEQ/L Potassium Level 4.3 MEQ/L Chloride Level 105 MEQ/L Carbon Dioxide Level 30.2 MEQ/L Anion Gap 6 MEQ/L Blood Urea Nitrogen 39 MG/DL Creatinine 1.07 MG/DL Estimat Glomerular Filtration 68 ML/MIN Rate Random Glucose 95 MG/DL Calcium Level 9.0 MG/DL Assessment and Plan Problem List: (1) CHF (congestive heart failure) (2) Heart failure, systolic, acute on chronic (3) Coronary artery disease (4) Shortness of breath (5) History of [place] (myocardial infarction) Assessment and Plan 1) Acute on chronic systolic heart failure, EF 10% 2) For Bi-V ICD on Saturday 3) Mild-moderate CAD Mitesh Gonzalez DO Aug 04, 2016 10:13
--- NOTE | 2016-08-04 11:44 | HHI.PR ---
Subjective Remarks sitting on the chair with no distress. no chest pain or sob. d/w the RN. Objective Vitals Vital Signs Date Time Temp Pulse Resp B/P Pulse Ox O2 Delivery O2 Flow Rate FiO2 08/04/16 07:00 98.2 83 19 101/76 96 08/04/16 07:00 84 08/04/16 06:00 84 08/04/16 05:00 86 08/04/16 04:00 87 08/04/16 03:00 86 08/04/16 03:00 97.7 85 16 90/50 94 08/04/16 02:00 88 08/04/16 01:00 87 08/04/16 00:00 84 08/03/16 23:00 89 08/03/16 23:00 98.1 89 16 86/60 94 08/03/16 22:00 94 08/03/16 21:08 95 08/03/16 21:00 97 08/03/16 20:00 98 08/03/16 19:00 106 08/03/16 19:00 98.8 97 16 111/73 96 08/03/16 18:40 18 106/76 94 08/03/16 15:20 97.7 86 18 99/79 93 08/03/16 14:20 97.8 95 18 109/85 95 08/03/16 13:34 97.5 89 18 100/72 99 I/O 08/03/16 08/03/16 08/03/16 08/04/16 08/04/16 08/04/16 07:00 15:00 23:00 07:00 15:00 23:00 Intake Total 930 ml 240 ml Output Total 200 ml Balance -200 ml 930 ml 240 ml Intake Oral 480 ml 240 ml IV Total 450 ml Output Urine Total 200 ml # Voids 1 5 2 Result Diagram: 08/04/16 0427 08/04/16 0427 Imaging Last Impressions Chest X-Ray 08/02/16 1553 Signed Impressions: Service Date/Time: July 15:51 - CONCLUSION: 1. Streaky opacity of the lung bases most consistent with scarring. 2. Cardiomegaly with no evidence of pulmonary edema. Jay Mendez MD Objective Remarks GENERAL: This is a well-nourished, well-developed patient, in no apparent distress. CARDIOVASCULAR: Regular rate and regular rhythm without murmurs, gallops, or rubs. RESPIRATORY: Clear to auscultation. Breath sounds equal bilaterally. No wheezes , rales, or rhonchi. GASTROINTESTINAL: Abdomen soft, non-tender, nondistended. Normal, active bowel sounds MUSCULOSKELETAL: Extremities without clubbing, cyanosis, or edema. NEURO: Alert & Oriented x4 to person, place, time, situation. Moves all ext x4 Procedures cardiac cath. Medications and IVs Current Medications IV Flush (NS Flush) 2 ml UNSCH PRN IVF FLUSH AFTER USING IV ACCESS; Start 08/02 at 16:00; Stop 08/02/16 at 20:00; Status DC Aspirin (Aspirin) 325 mg ONCE ONCE PO Last administered on 08/02/16 16:59; Start 08/02/16 at 16:15; Stop 08/02/16 at 16:16; Status DC Albuterol Sulfate (Proair Hfa Inh) 2 puff Q4HR PRN INH SHORTNESS OF BREATH; Start 08/02/16 at 20:00 Digoxin (Lanoxin) 0.125 mg DAILY PO Last administered on 08/04/16 08:48; Start 08/03/16 at 09:00 Metoprolol Tartrate (Lopressor) 25 mg DAILY PO ; Start 08/03/16 at 09:00; Stop 08/03/16 at 09:00; Status DC Multivitamins (Theragran) 1 tab DAILY PO Last administered on 08/04/16 08:51; Start 08/03/16 at 09:00 Potassium Chloride (KCl) 10 meq DAILY PO Last administered on 08/04/16 08:52; Start 08/03/16 at 09:00 Tiotropium [place] (Spiriva Inh) 18 mcg DAILY INH Last administered on 09:46; Start 08/03/16 at 09:00 Torsemide (Demadex) 20 mg DAILY PO Last administered on 08/04/16 08:49; Start 08/03/16 at 09:00 IV Flush (NS Flush) 2 ml BID IVF Last administered on 08/02/16 20:31; Start at 21:00; Stop 08/03/16 at 10:08; Status DC IV Flush (NS Flush) 2 ml UNSCH PRN IVF FLUSH AFTER USING IV ACCESS; Start 08/02 at 20:00; Stop 08/03/16 at 10:08; Status DC Heparin Sodium (Porcine) (Heparin Inj) 5,000 units Q12H SQ Last administered on 08/02/16 20:30; Start 08/02/16 at 20:00; Stop 08/03/16 at 10:10; Status DC Metoprolol Tartrate (Lopressor) 12.5 mg BID PO Last administered on 08/04/16 08:48; Start 08/03/16 at 09:00 Nitroglycerin 0.5 inch 0.5 inch Q8HR TOPICAL Last administered on 08/03/16 14: 00; Start 08/03/16 at 14:00 Sodium Chloride (NS 1000 ml Inj) 1,000 ml @ 30 mls/hr Q24H IV ; Start 08/03/16 at 07:04; Stop 08/03/16 at 10:08; Status DC Diphenhydramine HCl (Benadryl) 25 mg GREY ROLL WORKER PO ; Start 08/03/16 at 07:15; Stop 08/07/16 at 07:14 Diazepam (Valium) 5 mg GREY ROLL WORKER PO ; Start 08/03/16 at 07:15; Stop 08/07/16 at 07:14 Miscellaneous (Pill Splitter) 1 ea UNSCH PRN OTHER SEE LABEL COMMENTS; Start at 07:30 Midazolam HCl 2 mg 2 mg STK-MED ONCE .ROUTE Last administered on 08/03/16 08: 36; Start 08/03/16 at 08:36; Stop 08/03/16 at 08:37; Status DC Sodium Chloride (NS 1000 ml Inj) 1,000 ml @ 83 mls/hr Q12H3M IV ; Start at 10:00; Stop 08/03/16 at 10:09; Status DC IV Flush (NS Flush) 2 ml BID IVF Last administered on 08/04/16 08:52; Start at 21:00 IV Flush (NS Flush) 2 ml UNSCH PRN IVF FLUSH AFTER USING IV ACCESS; Start 08/03 at 09:45 Miscellaneous Information 1 ONCE ONCE XX ; Start 08/03/16 at 09:45; Stop at 10:09; Status DC Ondansetron HCl (Zofran Inj) 4 mg Q4H PRN IV NAUSEA; Start 08/03/16 at 09:45 Iohexol (OMNIPAQUE 350 INJ (Stable Helper)) 100 ml STK-MED ONCE OTHER ; Start at 10:02; Stop 08/03/16 at 10:03; Status DC Sacubitril/ Valsartan (Entresto 24-26 Mg) 1 tab DAILY PO Last administered on t 08:49; Start 08/04/16 at 09:00 A/P Assessment and Plan A/P Coronary artery disease/acute on chronic systolic CHF Exacerbation Images reviewed chest x-ray shows streaky opacity of the lung bases most consistent with scarring. Cardiomegaly with no evidence of pulmonary edema. -s/p cardiac cath with mild to moderate coronary artery disease -resumed home medications torsemide, metoprolol,Entresto and digoxin. - consult appreciated- plan for AICD placement. DVT prophylaxis: Heparin on hold for procedures. Jimmy Gatica MD Aug 04, 2016 11:44
[2016-08-04] MEDS: ACETAMINOPHEN 325 MG TAB PO PRN ×2 (16:22→21:30)
[2016-08-05] VITALS (18 sets, daily range): BP systolic 87–102; BP diastolic 63–74; PULSE 76–98; RESP 18–20; TEMP 97.5–98.4; O2SAT 93–98
[2016-08-05] MEDS: TORSEMIDE 20 MG TAB PO SCH (09:00)
[2016-08-05] MEDS: TIOTROPIUM BROMIDE 18 MCG INH INH SCH (09:00)
[2016-08-05] MEDS: POTASSIUM CHLORIDE 10 MEQ CAP PO SCH (10:01)
[2016-08-05] MEDS: MULTIVITAMIN TAB PO SCH (10:02)
[2016-08-05] MEDS: DIGOXIN 0.125 MG TAB PO SCH (10:02)
[2016-08-05] MEDS: METOPROLOL TARTRATE 25 MG TAB PO SCH ×2 (10:02→20:58)
[2016-08-05] MEDS: SACUBITRIL/VALSARTAN 24 MG-26 MG TAB PO SCH (10:02)
--- NOTE | 2016-08-05 11:00 | HHI.PR ---
Subjective Remarks overall doing fine. no chest pain or sob. Objective Vitals Vital Signs Date Time Temp Pulse Resp B/P Pulse Ox O2 Delivery O2 Flow Rate FiO2 08/05/16 08:55 97.7 95 18 98/74 93 08/05/16 08:00 95 08/05/16 04:00 85 08/05/16 03:00 87 08/05/16 03:00 98.4 91 18 102/74 97 08/05/16 02:00 88 08/05/16 01:00 83 08/05/16 00:00 77 08/04/16 23:00 79 08/04/16 23:00 98.0 81 18 90/69 96 08/04/16 22:00 74 08/04/16 21:00 73 08/04/16 20:00 72 08/04/16 19:00 73 08/04/16 19:00 98.0 84 18 83/45 95 08/04/16 18:18 67 08/04/16 17:42 95 Nasal Cannula 2.00 08/04/16 17:00 76 08/04/16 16:00 70 08/04/16 15:05 98.0 71 19 80/58 95 08/04/16 15:00 66 08/04/16 14:39 75 08/04/16 13:00 88 08/04/16 12:00 79 08/04/16 11:47 95 21 08/04/16 11:00 78 08/04/16 11:00 97.9 82 17 91/41 96 I/O 08/04/16 08/04/16 08/04/16 08/05/16 08/05/16 08/05/16 07:00 15:00 23:00 07:00 15:00 23:00 Intake Total 240 ml 840 ml 360 ml Output Total 500 ml Balance 240 ml 840 ml -140 ml Intake Oral 240 ml 840 ml 360 ml Output Urine Total 500 ml # Voids 2 6 Result Diagram: 08/04/167 08/04/167 Imaging Last Impressions Chest X-Ray 08/02/16 1553 Signed Impressions: Service Date/Time: July 15:51 - CONCLUSION: 1. Streaky opacity of the lung bases most consistent with scarring. 2. Cardiomegaly with no evidence of pulmonary edema. Jay Mendez MD Objective Remarks GENERAL: This is a well-nourished, well-developed patient, in no apparent distress. CARDIOVASCULAR: Regular rate and regular rhythm without murmurs, gallops, or rubs. RESPIRATORY: Clear to auscultation. Breath sounds equal bilaterally. No wheezes , rales, or rhonchi. GASTROINTESTINAL: Abdomen soft, non-tender, nondistended. Normal, active bowel sounds MUSCULOSKELETAL: Extremities without clubbing, cyanosis, or edema. NEURO: Alert & Oriented x4 to person, place, time, situation. Moves all ext x4 Procedures cardiac cath. Medications and IVs Current Medications IV Flush (NS Flush) 2 ml UNSCH PRN IVF FLUSH AFTER USING IV ACCESS; Start 08/02 at 16:00; Stop 08/02/16 at 20:00; Status DC Aspirin (Aspirin) 325 mg ONCE ONCE PO Last administered on 08/02/16 16:59; Start 08/02/16 at 16:15; Stop 08/02/16 at 16:16; Status DC Albuterol Sulfate (Proair Hfa Inh) 2 puff Q4HR PRN INH SHORTNESS OF BREATH; Start 08/02/16 at 20:00 Digoxin (Lanoxin) 0.125 mg DAILY PO Last administered on 08/05/16 10:02; Start 08/03/16 at 09:00 Metoprolol Tartrate (Lopressor) 25 mg DAILY PO ; Start 08/03/16 at 09:00; Stop 08/03/16 at 09:00; Status DC Multivitamins (Theragran) 1 tab DAILY PO Last administered on 08/05/16 10:02; Start 08/03/16 at 09:00 Potassium Chloride (KCl) 10 meq DAILY PO Last administered on 08/05/16 10:01; Start 08/03/16 at 09:00 Tiotropium [place] (Spiriva Inh) 18 mcg DAILY INH Last administered on 09:46; Start 08/03/16 at 09:00 Torsemide (Demadex) 20 mg DAILY PO Last administered on 08/04/16 08:49; Start 08/03/16 at 09:00 IV Flush (NS Flush) 2 ml BID IVF Last administered on 08/02/16 20:31; Start at 21:00; Stop 08/03/16 at 10:08; Status DC IV Flush (NS Flush) 2 ml UNSCH PRN IVF FLUSH AFTER USING IV ACCESS; Start 08/02 at 20:00; Stop 08/03/16 at 10:08; Status DC Heparin Sodium (Porcine) (Heparin Inj) 5,000 units Q12H SQ Last administered on 08/02/16 20:30; Start 08/02/16 at 20:00; Stop 08/03/16 at 10:10; Status DC Metoprolol Tartrate (Lopressor) 12.5 mg BID PO Last administered on 08/05/16 10:02; Start 08/03/16 at 09:00 Nitroglycerin 0.5 inch 0.5 inch Q8HR TOPICAL Last administered on 08/04/16 13: 33; Start 08/03/16 at 14:00 Sodium Chloride (NS 1000 ml Inj) 1,000 ml @ 30 mls/hr Q24H IV ; Start 08/03/16 at 07:04; Stop 08/03/16 at 10:08; Status DC Diphenhydramine HCl (Benadryl) 25 mg FAMILY READINESS SUPPORT ASSISTANT PO ; Start 08/03/16 at 07:15; Stop 08/07/16 at 07:14 Diazepam (Valium) 5 mg FAMILY READINESS SUPPORT ASSISTANT PO ; Start 08/03/16 at 07:15; Stop 08/07/16 at 07:14 Miscellaneous (Pill Splitter) 1 ea UNSCH PRN OTHER SEE LABEL COMMENTS; Start at 07:30 Midazolam HCl 2 mg 2 mg STK-MED ONCE .ROUTE Last administered on 08/03/16 08: 36; Start 08/03/16 at 08:36; Stop 08/03/16 at 08:37; Status DC Sodium Chloride (NS 1000 ml Inj) 1,000 ml @ 83 mls/hr Q12H3M IV ; Start at 10:00; Stop 08/03/16 at 10:09; Status DC IV Flush (NS Flush) 2 ml BID IVF Last administered on 08/04/16 08:52; Start at 21:00 IV Flush (NS Flush) 2 ml UNSCH PRN IVF FLUSH AFTER USING IV ACCESS; Start 08/03 at 09:45 Miscellaneous Information 1 ONCE ONCE XX ; Start 08/03/16 at 09:45; Stop at 10:09; Status DC Ondansetron HCl (Zofran Inj) 4 mg Q4H PRN IV NAUSEA; Start 08/03/16 at 09:45 Iohexol (OMNIPAQUE 350 INJ (Shark Biologist)) 100 ml STK-MED ONCE OTHER ; Start at 10:02; Stop 08/03/16 at 10:03; Status DC Sacubitril/ Valsartan (Entresto 24-26 Mg) 1 tab DAILY PO Last administered on 10:02; Start 08/04/16 at 09:00 Acetaminophen (Tylenol) 325 mg Q4H PRN PO PAIN SCALE 1 TO 10 Last administered on 08/04/16 21:30; Start 08/04/16 at 15:45 A/P Assessment and Plan A/P Coronary artery disease/acute on chronic systolic CHF Exacerbation Images reviewed chest x-ray shows streaky opacity of the lung bases most consistent with scarring. Cardiomegaly with no evidence of pulmonary edema. -s/p cardiac cath with mild to moderate coronary artery disease -resumed home medications torsemide, metoprolol,Entresto and digoxin. - consult appreciated- plan for AICD placement tomorrow. DVT prophylaxis: Heparin on hold for procedures. Jimmy Gatica MD Aug 05, 2016 11:00
[2016-08-05] MEDS ORDERED: TORSEMIDE 5 MG TAB PO ONE (11:15)
[2016-08-05] MEDS: ACETAMINOPHEN 325 MG TAB PO PRN (11:16)
--- NOTE | 2016-08-05 12:07 | PD.CARD.PN ---
Subjective Subjective Remarks No chest pain, no shortness of breath, up and ambulating Objective Medications Current Medications Medications (Trade) Dose Ordered Sig/Awa Route Start Time Stop Time Status Last Admin (Proair Hfa Inh) 2 puff Q4HR PRN INH 08/02/16 20:00 (Lanoxin) 0.125 mg DAILY PO 08/03/16 09:00 08/05/16 10:02 (Theragran) 1 tab DAILY PO 08/03/16 09:00 08/05/16 10:02 (KCl) 10 meq DAILY PO 08/03/16 09:00 08/05/16 10:01 (Spiriva Inh) 18 mcg DAILY INH 08/03/16 09:00 08/04/16 09:46 (Demadex) 20 mg DAILY PO 08/03/16 09:00 08/04/16 08:49 (Lopressor) 12.5 mg BID PO 08/03/16 09:00 08/05/16 10:02 (Nitroglycerin 2% Oint) 0.5 inch Q8HR TOPICAL 08/03/16 14:00 08/04/16 13:33 (Pill Splitter) 1 ea UNSCH PRN OTHER 08/03/16 07:30 (NS Flush) 2 ml BID IVF 08/03/16 21:00 08/04/16 08:52 (NS Flush) 2 ml UNSCH PRN IVF 08/03/16 09:45 (Zofran Inj) 4 mg Q4H PRN IV 08/03/16 09:45 (Entresto 24-26 Mg) 1 tab DAILY PO 08/04/16 09:00 08/05/16 10:02 (Tylenol) 325 mg Q4H PRN PO 08/04/16 15:45 08/05/16 11:16 Vital Signs / I&O Vital Signs Date Time Temp Pulse Resp B/P Pulse Ox O2 Delivery O2 Flow Rate FiO2 08/05/16 11:00 91 08/05/16 10:00 96 08/05/16 09:00 94 08/05/16 08:55 97.7 95 18 98/74 93 08/05/16 08:00 95 08/05/16 07:00 98 08/05/16 04:00 85 08/05/16 03:00 87 08/05/16 03:00 98.4 91 18 102/74 97 08/05/16 02:00 88 08/05/16 01:00 83 08/05/16 00:00 77 08/04/16 23:00 79 08/04/16 23:00 98.0 81 18 90/69 96 08/04/16 22:00 74 08/04/16 21:00 73 08/04/16 20:00 72 08/04/16 19:00 73 08/04/16 19:00 98.0 84 18 83/45 95 08/04/16 18:18 67 08/04/16 17:42 95 Nasal Cannula 2.00 08/04/16 17:00 76 08/04/16 16:00 70 08/04/16 15:05 98.0 71 19 80/58 95 08/04/16 15:00 66 08/04/16 14:39 75 08/04/16 13:00 88 I/O 08/04/16 08/04/16 08/04/16 08/05/16 08/05/16 08/05/16 07:00 15:00 23:00 07:00 15:00 23:00 Intake Total 240 ml 840 ml 360 ml Output Total 500 ml Balance 240 ml 840 ml -140 ml Intake Oral 240 ml 840 ml 360 ml Output Urine Total 500 ml # Voids 2 6 Physical Exam GENERAL: NAD SKIN: Warm and dry. HEAD: Atraumatic. Normocephalic. EYES: Pupils equal and round. No scleral icterus. No injection or drainage. ENT: No nasal bleeding or discharge. Mucous membranes pink and moist. NECK: Trachea midline. No JVD. CARDIOVASCULAR: Regular rate and rhythm. RESPIRATORY: No accessory muscle use. Minimal rales lower lobes GASTROINTESTINAL: Abdomen soft, non-tender, nondistended. Hepatic and splenic margins not palpable. MUSCULOSKELETAL: Extremities without clubbing, cyanosis, or edema. No obvious deformities. NEUROLOGICAL: Awake and alert. No obvious cranial nerve deficits. Motor grossly within normal limits. Five out of 5 muscle strength in the arms and legs. Normal speech. PSYCHIATRIC: Appropriate mood and affect; insight and judgment normal. Assessment and Plan Problem List: (1) CHF (congestive heart failure) (2) Heart failure, systolic, acute on chronic (3) Coronary artery disease (4) Shortness of breath (5) History of [place] (myocardial infarction) Assessment and Plan 1) Acute on chronic systolic heart failure, EF 10% 2) For Bi-V ICD on Saturday with Dr. Sara NPO after midnight 3) Mild-moderate CAD Mitesh Gonzalez DO Aug 05, 2016 12:07
[2016-08-05] MEDS: SODIUM CHLORIDE 0.9% FLUSH 5 ML FLUSH IVF SCH ×2 (13:46→20:59)
[2016-08-05] MEDS: NITROGLYCERIN 2% OINT 1 GM PACKET TOPICAL SCH ×2 (13:47→20:59)
[2016-08-06] VITALS (16 sets, daily range): BP systolic 81–95; BP diastolic 52–77; PULSE 80–95; RESP 16–24; TEMP 97.3–98.2; O2SAT 95–97
[2016-08-06] MEDS: NITROGLYCERIN 2% OINT 1 GM PACKET TOPICAL SCH ×3 (04:46→22:00)
[2016-08-06] MEDS: ACETAMINOPHEN 325 MG TAB PO PRN (04:46)
[2016-08-06] MEDS ORDERED: MIDAZOLAM HCL 2 MG/2 ML VIAL ONE ×2 (07:31→09:30)
[2016-08-06] MEDS ORDERED: ceFAZolin INJ 1,000 MG VIAL ONE (07:56)
[2016-08-06] MEDS ORDERED: VANCOMYCIN 500 MG VIAL ONE (07:56)
[2016-08-06] MEDS ORDERED: VANCOMYCIN HCL 1000 MG VIAL ONE (07:56)
[2016-08-06] MEDS ORDERED: LIDOCAINE HCL 2% 50 ML VIAL ONE (07:56)
[2016-08-06] MEDS: TIOTROPIUM BROMIDE 18 MCG INH INH SCH (09:00)
--- NOTE | 2016-08-06 10:22 | PD.CARD ---
BIV/ICD Implantation PROCEDURE DATE: Aug 06, 2016 NYHA Classification: Class III (Moderate) Prevention: Primary BIV/ICD IMPLANT PROCEDURE Biventricular pacer defibrillator implantation and device testing. INDICATION FOR PROCEDURE Mr. Sandoval is a 70-year-old male with congestive heart failure, ischemic cardiomyopathy, EF 10%, QRS 200mg, on optimal medical management for over a year, meds cannot be uptitrated due to blood pressure, who undergo biventricular pacer defibrillator implantation. The risks, the nature and the benefit of the procedure were clearly stated to him. The risks include pneumothorax, cardiac perforation, stroke and even . He understood and agreed to proceed. PROCEDURE As written informed consent was obtained prior to electrophysiology study, the patient was kept on the table where he was prepped and draped in the usual sterile fashion. Conscious sedation was initiated and maintained throughout the procedure by the anesthesiologist. Once sedation was verified, the left infraclavicular area was anesthetized with 2% Xylocaine. Using modified Seldinger technique, the left subclavian vein was cannulated on three occasions and three guidewire were advanced. Then, using an 11 blade scalpel, a 3 cm incision was made over the existing generator. The incision was taken down to the fascial layer using Bovie cautery and blunt dissection. Into the inferomedial direction, a device pocket was dissected. Then the wires were dissected into pocket. A 2-0 Vicryl suture was placed around the wires to prevent back-bleeding. At this point, over the lateral wire, a 9-Vincentian dilator and introducer were advanced. As the dilator and wire were removed, an active fixation right ventricular pacing sensing defibrillatory lead was advanced. After adequate pacing and sensing thresholds were obtained, the lead was secured in the pocket using # 2 Ethibond suture. Then, over the lateral wire, a 7-Vincentian dilator and introducer was advanced. As the dilator and wire were removed, an active fixation right atrial pacing and sensing lead was advanced. After adequate pacing and sensing threshold obtained, the lead was secure into the pocket using #2 Ethibond suture. Then, over the remaining wire, a 9-Vincentian dilator and introducer were advanced. As the dilator and wire were removed, a CS cannulation sheath was advanced. Through the sheath a quadripolar steerable catheter was advanced. After multiple manipulations the coronary sinus was cannulated, and CS venography showed an adequate lateral branch. Using a Prowater wire the lateral branch was cannulated and the lead was advanced over the wire. After adequate pacing and sensing thresholds were obtained, the peel-away introducer was removed and the cutter introducer was removed, and the lead was secured in the pocket using # 2 Ethibond suture. At that point, the pocket was copiously irrigated with antibiotic solution. The leads were connected to the generator and placed into pocket. Because of the patient's general condition and was so unstable during the procedure, I decided not to proceed with device testing. I did proceed with wound closure. The deep fascial layer was approximated using #2-0 Vicryl suture in a continuous fashion. The subcutaneous layer was approximated with 2-0 Vicryl suture in a continuous fashion. The subcuticular layer was approximated with 2-0 Vicryl suture in a continuous fashion. Dermabond adhesive was applied to the wound followed by a sterile pressure dressing. This was a very complex case. The patient was unstable during the procedure, but no complications reported. Blood loss was minimal. IMPLANTED HARDWARE The implanted biventricular pacer defibrillator is a Medtronic model FKAS0TC, serial number [id number]. The right atrial pacing and sensing lead is a Medtronic model number 4076-52, serial number [id number]. The right ventricle pacing sensing defibrillatory is a Medtronic model 6935M-62, serial number [id number]. The left ventricular pacing sensing lead is a Medtronic model 4398-88, serial number [id number]. THRESHOLDS The right atrial pacing threshold in a bipolar mode was 2.1V @ 0.5ms. P wave was at 1.6 millivolts and impedance 1296 ohms. The right ventricle pacing threshold in the bipolar mode was 0.7 volts at 0.5 milliseconds, lead impedance 570 ohms. The left ventricular pacing threshold in the bipolar mode was 0.8 volts at 0.5 milliseconds, lead impedance 635 ohms, R wave could not be measured. SETTINGS The device was set in a DDD 60, upper limit 110 beats per minute. LV first by 40 milliseconds. The defibrillatory portion was set for three zones. One zone for ventricular tachycardia monitoring between 160 and 240 beats per minute on the monitor ventricular tachycardia. The initial therapy consisted of one burst of ATP, one RAMP, 81%, 10 pulses, 10 millisecond decremental followed by 20, 25 and all subsequent shocks at 35 joules. The second zone is for ventricle fibrillation above 240, the first therapy at 25 and all subsequent shocks at 35 joules defibrillatory shock. CONCLUSIONS Successful biventricular pacer defibrillator implantation, that was a complex case. COMMENT AND RECOMMENDATION The patient will be transferred to the telemetry unit. He will be observed and when stable can be discharged home. Faisal Ruiz MD Aug 06, 2016 10:22
[2016-08-06] MEDS ORDERED: METOCLOPRAMIDE HCL 10 MG/2 ML VIAL IV PRN (10:30)
[2016-08-06] MEDS ORDERED: LORazepam 2 MG/ML VIAL IV PRN (10:30)
[2016-08-06] MEDS ORDERED: oxyCODONE/ACETAMINOPHEN 5 MG/325 MG TAB PO PRN ×2 (10:30)
[2016-08-06] MEDS ORDERED: ATROPINE SULFATE 1 MG/ML VIAL IV PRN (10:30)
[2016-08-06] MEDS ORDERED: SODIUM CHLORIDE 0.9% FLUSH 5 ML FLUSH IVF PRN (10:30)
[2016-08-06] MEDS ORDERED: LIDOCAINE HCL 1% 50 ML VIAL INFIL PRN (10:30)
[2016-08-06] MEDS ORDERED: SODIUM CHLOR 0.9% 250 ML INJ 250 ML IV PRN (10:30)
[2016-08-06] MEDS ORDERED: ONDANSETRON HCL 4 MG/2 ML VIAL IV PRN (10:30)
[2016-08-06] MEDS ORDERED: BACITRACIN OINT 0.9 GM PKT TOP ONE (11:00)
--- NOTE | 2016-08-06 11:29 | HHI.PR ---
Subjective Remarks had AICD placement earlier. now resting comfortably. no pain or sob. Objective Vitals Vital Signs Date Time Temp Pulse Resp B/P Pulse Ox O2 Delivery O2 Flow Rate FiO2 08/06/16 07:00 95 Room Air 08/06/16 07:00 97.3 80 18 94/67 95 08/06/16 06:00 87 08/06/16 05:00 89 08/06/16 04:00 93 08/06/16 04:00 98.0 93 16 92/76 96 08/06/16 04:00 Room Air 08/06/16 03:00 91 08/06/16 02:00 90 08/06/16 01:00 87 08/06/16 00:00 98.2 82 18 81/52 97 08/06/16 00:00 Room Air 08/06/16 00:00 82 08/05/16 23:00 86 08/05/16 22:00 82 08/05/16 21:00 80 08/05/16 20:00 98.0 81 18 87/63 98 08/05/16 20:00 81 08/05/16 16:00 76 08/05/16 16:00 97.5 81 20 89/68 98 08/05/16 12:00 97.7 79 20 101/71 98 08/05/16 12:00 79 I/O 08/05/16 08/05/16 08/05/16 08/06/16 08/06/16 08/06/16 07:00 15:00 23:00 07:00 15:00 23:00 Intake Total 360 ml 482 ml Output Total 500 ml 600 ml Balance -140 ml -118 ml Intake Oral 360 ml 480 ml IV Total 2 ml Output Urine Total 500 ml 600 ml # Bowel Movements 0 Result Diagram: 08/04/16 0427 08/04/16 0427 Imaging Last Impressions Chest X-Ray 08/02/16 1553 Signed Impressions: Service Date/Time: July 15:51 - CONCLUSION: 1. Streaky opacity of the lung bases most consistent with scarring. 2. Cardiomegaly with no evidence of pulmonary edema. Jay Mendez MD Objective Remarks GENERAL: This is a well-nourished, well-developed patient, in no apparent distress. CARDIOVASCULAR: Regular rate and regular rhythm without murmurs, gallops, or rubs. RESPIRATORY: Clear to auscultation. Breath sounds equal bilaterally. No wheezes , rales, or rhonchi. GASTROINTESTINAL: Abdomen soft, non-tender, nondistended. Normal, active bowel sounds MUSCULOSKELETAL: Extremities without clubbing, cyanosis, or edema. NEURO: Alert & Oriented x4 to person, place, time, situation. Moves all ext x4 Procedures cardiac cath. AICD placement. Medications and IVs Current Medications IV Flush (NS Flush) 2 ml UNSCH PRN IVF FLUSH AFTER USING IV ACCESS; Start 08/02 at 16:00; Stop 08/02/16 at 20:00; Status DC Aspirin (Aspirin) 325 mg ONCE ONCE PO Last administered on 08/02/16 16:59; Start 08/02/16 at 16:15; Stop 08/02/16 at 16:16; Status DC Albuterol Sulfate (Proair Hfa Inh) 2 puff Q4HR PRN INH SHORTNESS OF BREATH; Start 08/02/16 at 20:00 Digoxin (Lanoxin) 0.125 mg DAILY PO Last administered on 08/05/16 10:02; Start 08/03/16 at 09:00 Metoprolol Tartrate (Lopressor) 25 mg DAILY PO ; Start 08/03/16 at 09:00; Stop 08/03/16 at 09:00; Status DC Multivitamins (Theragran) 1 tab DAILY PO Last administered on 08/05/16 10:02; Start 08/03/16 at 09:00 Potassium Chloride (KCl) 10 meq DAILY PO Last administered on 08/05/16 10:01; Start 08/03/16 at 09:00 Tiotropium [place] (Spiriva Inh) 18 mcg DAILY INH Last administered on 09:46; Start 08/03/16 at 09:00 Torsemide (Demadex) 20 mg DAILY PO Last administered on 08/04/16 08:49; Start 08/03/16 at 09:00 IV Flush (NS Flush) 2 ml BID IVF Last administered on 08/02/16 20:31; Start at 21:00; Stop 08/03/16 at 10:08; Status DC IV Flush (NS Flush) 2 ml UNSCH PRN IVF FLUSH AFTER USING IV ACCESS; Start 08/02 at 20:00; Stop 08/03/16 at 10:08; Status DC Heparin Sodium (Porcine) (Heparin Inj) 5,000 units Q12H SQ Last administered on 08/02/16 20:30; Start 08/02/16 at 20:00; Stop 08/03/16 at 10:10; Status DC Metoprolol Tartrate (Lopressor) 12.5 mg BID PO Last administered on 08/05/16 10:02; Start 08/03/16 at 09:00 Nitroglycerin 0.5 inch 0.5 inch Q8HR TOPICAL Last administered on 08/04/16 13: 33; Start 08/03/16 at 14:00 Sodium Chloride (NS 1000 ml Inj) 1,000 ml @ 30 mls/hr Q24H IV ; Start 08/03/16 at 07:04; Stop 08/03/16 at 10:08; Status DC Diphenhydramine HCl (Benadryl) 25 mg COMPANY MARKER PO ; Start 08/03/16 at 07:15; Stop 08/07/16 at 07:14 Diazepam (Valium) 5 mg COMPANY MARKER PO ; Start 08/03/16 at 07:15; Stop 08/07/16 at 07:14 Miscellaneous (Pill Splitter) 1 ea UNSCH PRN OTHER SEE LABEL COMMENTS; Start at 07:30 Midazolam HCl 2 mg 2 mg STK-MED ONCE .ROUTE Last administered on 08/03/16 08: 36; Start 08/03/16 at 08:36; Stop 08/03/16 at 08:37; Status DC Sodium Chloride (NS 1000 ml Inj) 1,000 ml @ 83 mls/hr Q12H3M IV ; Start at 10:00; Stop 08/03/16 at 10:09; Status DC IV Flush (NS Flush) 2 ml BID IVF Last administered on 08/05/16 20:59; Start at 21:00; Stop 08/06/16 at 10:56; Status DC IV Flush (NS Flush) 2 ml UNSCH PRN IVF FLUSH AFTER USING IV ACCESS; Start 08/03 at 09:45; Stop 08/06/16 at 10:56; Status DC Miscellaneous Information 1 ONCE ONCE XX ; Start 08/03/16 at 09:45; Stop at 10:09; Status DC Ondansetron HCl (Zofran Inj) 4 mg Q4H PRN IV NAUSEA; Start 08/03/16 at 09:45; Stop 08/06/16 at 10:55; Status DC Iohexol (OMNIPAQUE 350 INJ ([employer])) 100 ml STK-MED ONCE OTHER ; Start at 10:02; Stop 08/03/16 at 10:03; Status DC Sacubitril/ Valsartan (Entresto 24-26 Mg) 1 tab DAILY PO Last administered on 10:02; Start 08/04/16 at 09:00 Acetaminophen (Tylenol) 325 mg Q4H PRN PO PAIN SCALE 1 TO 10 Last administered on 08/06/16 04:46; Start 08/04/16 at 15:45 Torsemide (Demadex) 20 mg ONCE ONCE PO Last administered on 08/05/16 11:15; Start 08/05/16 at 11:15; Stop 08/05/16 at 11:16; Status DC Fentanyl Citrate (fentaNYL INJ) 100 mcg STK-MED ONCE .ROUTE ; Start 08/06/16 at 07:30; Stop 08/06/16 at 07:31; Status DC Midazolam HCl (Versed Inj) 2 mg STK-MED ONCE .ROUTE ; Start 08/06/16 at 07:31; Stop 08/06/16 at 07:32; Status DC Vancomycin HCl (Vancomycin Inj) 500 mg STK-MED ONCE .ROUTE Last administered on 08/06/16 07:56; Start 08/06/16 at 07:56; Stop 08/06/16 at 07:57; Status DC Lidocaine HCl (Xylocaine 2% Inj) 50 ml STK-MED ONCE .ROUTE Last administered on 08/06/16 07:56; Start 08/06/16 at 07:56; Stop 08/06/16 at 07:57; Status DC Vancomycin HCl (Vancomycin Inj) 1,000 mg STK-MED ONCE .ROUTE Last administered on 08/06/16 08:12; Start 08/06/16 at 07:56; Stop 08/06/16 at 07:57; Status DC Cefazolin Sodium (Ancef Inj) 2,000 mg STK-MED ONCE .ROUTE Last administered on 08/06/16t 08:05; Start 08/06/16 at 07:56; Stop 08/06/16 at 07:57; Status DC Fentanyl Citrate (fentaNYL INJ) 100 mcg STK-MED ONCE .ROUTE ; Start 08/06/16 at 08:43; Stop 08/06/16 at 08:44; Status DC Midazolam HCl (Versed Inj) 2 mg STK-MED ONCE .ROUTE ; Start 08/06/16 at 09:30; Stop 08/06/16 at 09:31; Status DC Oxycodone/ Acetaminophen (Percocet 5-325 Mg) 1 tab Q4H PRN PO PAIN SCALE 1 TO 4; Start 08/06/16 at 10:30 Oxycodone/ Acetaminophen (Percocet 5-325 Mg) 2 tab Q4H PRN PO PAIN SCALE 5 TO 10; Start 08/06/16 at 10:30 Lorazepam (Ativan Inj) 0.5 mg UNSCH PRN IV ANXIETY; Start 08/06/16 at 10:30; Stop 08/07/16 at 10:29 Atropine Sulfate 0.5 mg 0.5 mg UNSCH PRN IV VAGAL REPONSE; Start 08/06/16 at 10 :30 Sodium Chloride (NS 250 ml Inj) 250 ml @ 500 mls/hr UNSCH X1 PRN IV VAGAL REPONSE; Start 08/06/16 at 10:30; Stop 08/07/16 at 10:29 Metoclopramide HCl (Reglan Inj) 10 mg Q4H PRN IV NAUSEA; Start 08/06/16 at 10: 30 Ondansetron HCl (Zofran Inj) 4 mg Q4H PRN IV NAUSEA; Start 08/06/16 at 10:30 Lidocaine HCl (Xylocaine 1% Inj (50 ml)) 10 ml UNSCH PRN INFIL SHEATH REMOVAL; Start 08/06/16 at 10:30; Stop 08/07/16 at 10:29 Bacitracin 0.9 gm 0.9 gm ONCE ONCE TOP ; Start 08/06/16 at 11:00; Stop at 11:01; Status DC Cefazolin Sodium/ Dextrose (Ancef 2 Gm Premix) 50 ml @ 100 mls/hr Q8H IV ; Start 08/06/16 at 16:00; Stop 08/07/16 at 08:29 IV Flush (NS Flush) 2 ml BID IVF ; Start 08/06/16 at 21:00 IV Flush (NS Flush) 2 ml UNSCH PRN IVF FLUSH AFTER USING IV ACCESS; Start 08/06 at 10:30 A/P Assessment and Plan A/P Coronary artery disease/acute on chronic systolic CHF Exacerbation Images reviewed chest x-ray shows streaky opacity of the lung bases most consistent with scarring. Cardiomegaly with no evidence of pulmonary edema. -s/p cardiac cath with mild to moderate coronary artery disease -resumed home medications torsemide, metoprolol,Entresto and digoxin. -s/p AICD placement DVT prophylaxis: Heparin when ok with cardiology. Discharge Planning discharge home when ok with cardiology. Jimmy Gatica MD Aug 06, 2016 11:29
[2016-08-06] MEDS ORDERED: METO25TA3 PO (11:31)
[2016-08-06] MEDS ORDERED: SACU1TAB PO (11:32)
--- NOTE | 2016-08-06 11:40 | RADRPT ---
EXAM DATE/TIME: 08/06/2016 10:30 [place] COMPARISON: CHEST SINGLE AP, August 02, 2016, 15:51. INDICATIONS: Post pacemaker MEDICAL HISTORY: Myocardial infarction. Cardiovascular disease. SURGICAL HISTORY: Cardiac catheterization ENCOUNTER: Initial ACUITY: 4 - 6 days PAIN SCORE: 0/10 LOCATION: Bilateral chest FINDINGS: Pacemaker is implanted in the left chest. Three leads are evident. Heart is enlarged. Pulmonary va scularity is normal. There is no pneumothorax. Minimal parenchymal changes are seen in the left bas e. CONCLUSION: Pacemaker as described above without pneumothorax. Woody Denis MD FACR on August 06, 2016 at 11:26 Board Certified Radiologist. This report was verified electronically.
--- NOTE | 2016-08-06 13:02 | MA ---
cc: TOMER AMAYA MD, HANSCY M.D. MINOUEI, MOHAMMADREZA MD DATE 08/06/2016 PROCEDURE PERFORMED Electrophysiology study. INDICATIONS FOR PROCEDURE Mr. Sandoval is a 70-year-old gentleman with congestive heart failure, cardiomyopathy, coronary artery disease, ejection fraction less than 20%, to undergo electrophysiology study. The risks, the nature and the benefit of the procedure are clearly stated to him. The risks include pneumothorax, cardiac perforation, stroke, need for open heart surgery and even . The patient understood and agreed to proceed. PROCEDURE After written informed consent was obtained, the patient was brought to the EP Lab where he was prepped and draped in the usual sterile fashion. Conscious sedation was initiated and maintained throughout the procedure by anesthesiologist. Once sedation was verified, the right and left inguinal area was anesthetized with 2% Xylocaine. Using modified Seldinger technique, it was very difficult to cannulate the right femoral vein. I did cannulate on one occasion and the guidewire was advanced. Then the left inguinal area was anesthetized with 2% Xylocaine. Using modified Seldinger technique, the left femoral vein was cannulated on one occasion, the guidewires were advanced. A second guidewire was advanced also. Over the wires, two 5-Slovenian Hemaquets were advanced. In the right femoral vein, a 6-Slovenian Hemaquet were advanced. Then under fluoroscopic guidance through the 5 and 6-Slovenian Hemaquet, the 5-Slovenian Mercedes curved quadripolar electrophysiology catheter was advanced and placed on the His, upper right atrium and coronary sinus. Basic interval was measured. H-V was prolonged; it was 130 milliseconds. Then atrial pacing protocol was performed. Atrial pacing protocol consisted of incremental atrial pacing as well as program stimulation with 110 cycle length and up to one extrastimuli delivered. No tachyarrhythmia was induced. Then the atrial catheter was placed at the right ventricular apex. Ventricular pacing protocol was performed. During ventricular pacing protocol blood pressure dropped to the 60s. Unable to return an adequate blood pressure. I did discontinue the procedure. At that point the procedure was complete. All catheters were removed. The patient is going to be kept on the table. A biventricular pacer defibrillator will be implanted for sudden prevention and resynchronization therapy. Blood loss minimal. 1. Electrocardiogram: At baseline the patient was in sinus. Postprocedure electrocardiogram was unchanged. 2. Basic Interval: Base cycle length was 740 milliseconds, AH at 70 and HV up to 130 milliseconds. 3. Atrial Pacing Protocol: Wenckebach of the node at 260 milliseconds. No tachyarrhythmia was induced. 4. Ventricular Pacing Protocol: There was no VA conduction. Ventricular pacing protocol was discontinued because of blood pressure issue. CONCLUSION 1. Infra-His disease. 2. Negative electrophysiology study for supra and ventricular tachyarrhythmia. COMMENT AND RECOMMENDATION The patient is going to be kept on the table. He has a low ejection fraction. Medication is going to be up titrated. His has congestive heart failure Class III, maybe Class IV. Biventricular pacer defibrillator will be implanted for sudden prevention and resynchronization therapy. MD KATHERINE Betancourt/SSB /9:12 AM /12:31 PM
[2016-08-06] MEDS: ceFAZolin 2 GM PREMIX 50 ML IV SCH ×2 (16:00→23:07)
[2016-08-06] MEDS: SODIUM CHLORIDE 0.9% FLUSH 5 ML FLUSH IVF SCH (21:00)
[2016-08-06] MEDS: METOPROLOL TARTRATE 25 MG TAB PO SCH (21:00)
[2016-08-07] VITALS (13 sets, daily range): BP systolic 91–96; BP diastolic 70–75; PULSE 87–98; RESP 18; TEMP 97.6–98.6; O2SAT 95–96
[2016-08-07] MEDS: NITROGLYCERIN 2% OINT 1 GM PACKET TOPICAL SCH (06:00)
[2016-08-07] MEDS: ceFAZolin 2 GM PREMIX 50 ML IV SCH (08:00)
[2016-08-07] MEDS: TORSEMIDE 20 MG TAB PO SCH ×2 (08:50→09:00)
[2016-08-07] MEDS: MULTIVITAMIN TAB PO SCH ×2 (08:51→09:00)
[2016-08-07] MEDS: ACETAMINOPHEN 325 MG TAB PO PRN (08:51)
[2016-08-07] MEDS: SACUBITRIL/VALSARTAN 24 MG-26 MG TAB PO SCH ×2 (08:51→09:00)
[2016-08-07] MEDS: POTASSIUM CHLORIDE 10 MEQ CAP PO SCH ×2 (08:52→09:00)
[2016-08-07] MEDS: SODIUM CHLORIDE 0.9% FLUSH 5 ML FLUSH IVF SCH (08:52)
[2016-08-07] MEDS: DIGOXIN 0.125 MG TAB PO SCH ×2 (08:52→09:00)
[2016-08-07] MEDS: METOPROLOL TARTRATE 25 MG TAB PO SCH (08:53)
[2016-08-07] MEDS: TIOTROPIUM BROMIDE 18 MCG INH INH SCH (09:00)
--- NOTE | 2016-08-07 09:05 | PD.CARD.PN ---
Subjective Subjective Remarks Feels ok. Objective Medications Current Medications Medications (Trade) Dose Ordered Sig/Awa Route Start Time Stop Time Status Last Admin (Proair Hfa Inh) 2 puff Q4HR PRN INH 08/02/16 20:00 (Lanoxin) 0.125 mg DAILY PO 08/03/16 09:00 08/07/16 08:52 (Theragran) 1 tab DAILY PO 08/03/16 09:00 08/07/16 08:51 (KCl) 10 meq DAILY PO 08/03/16 09:00 08/07/16 08:52 (Spiriva Inh) 18 mcg DAILY INH 08/03/16 09:00 08/06/16 09:00 (Demadex) 20 mg DAILY PO 08/03/16 09:00 08/07/16 08:50 (Lopressor) 12.5 mg BID PO 08/03/16 09:00 08/07/16 08:53 (Nitroglycerin 2% Oint) 0.5 inch Q8HR TOPICAL 08/03/16 14:00 08/04/16 13:33 (Pill Splitter) 1 ea UNSCH PRN OTHER 08/03/16 07:30 (Entresto 24-26 Mg) 1 tab DAILY PO 08/04/16 09:00 08/07/16 08:51 (Tylenol) 325 mg Q4H PRN PO 08/04/16 15:45 08/07/16 08:51 (Percocet 5-325 Mg) 1 tab Q4H PRN PO 08/06/16 10:30 (Percocet 5-325 Mg) 2 tab Q4H PRN PO 08/06/16 10:30 08/07/16 06:15 (Ativan Inj) 0.5 mg UNSCH PRN IV 08/06/16 10:30 08/07/16 10:29 (Atropine Inj) 0.5 mg UNSCH PRN IV 08/06/16 10:30 (Reglan Inj) 10 mg Q4H PRN IV 08/06/16 10:30 (Zofran Inj) 4 mg Q4H PRN IV 08/06/16 10:30 (Xylocaine 1% Inj (50 ml)) 10 ml UNSCH PRN INFIL 08/06/16 10:30 08/07/16 10:29 (NS Flush) 2 ml BID IVF 08/06/16 21:00 08/07/16 08:52 (NS Flush) 2 ml UNSCH PRN IVF 08/06/16 10:30 Vital Signs / I&O Vital Signs Date Time Temp Pulse Resp B/P Pulse Ox O2 Delivery O2 Flow Rate FiO2 08/07/16 08:53 18 08/07/16 06:00 88 08/07/16 05:00 93 08/07/16 04:00 93 08/07/16 03:00 97.6 92 18 91/70 96 08/07/16 03:00 93 08/07/16 02:00 93 08/07/16 01:00 94 08/07/16 00:00 90 08/06/16 23:00 98.0 91 24 88/65 95 08/06/16 23:00 95 08/06/16 22:00 93 08/06/16 21:22 97 21 08/06/16 21:00 93 08/06/16 20:00 89 08/06/16 19:00 98.0 91 20 95/77 95 08/06/16 19:00 95 Room Air 08/06/16 19:00 93 08/06/16 16:00 92 08/06/16 11:00 84 I/O 08/06/16 08/06/16 08/06/16 08/07/16 08/07/16 08/07/16 07:00 15:00 23:00 07:00 15:00 23:00 Intake Total 482 ml 289 ml Output Total 600 ml 525 ml Balance -118 ml -236 ml Intake Oral 480 ml 240 ml IV Total 2 ml 49 ml Output Urine Total 600 ml 525 ml # Voids 3 # Bowel Movements 0 0 Physical Exam GENERAL: Well-nourished, well-developed patient. SKIN: Warm and dry. LCW incision well approximated without erythema or drainage. Groin sites stable. HEAD: Normocephalic. EYES: No scleral icterus. No injection or drainage. NECK: Supple, trachea midline. No JVD or lymphadenopathy. CARDIOVASCULAR: Regular rate and rhythm without murmurs, gallops, or rubs. RESPIRATORY: Breath sounds equal bilaterally. No accessory muscle use. GASTROINTESTINAL: Abdomen soft, non-tender, nondistended. EXTREMITIES: No cyanosis, or edema. NEUROLOGICAL: Awake, alert, and oriented x 3. Non-focal. Imaging Last 48 hours Impressions Chest X-Ray 08/06/16 0000 Signed Impressions: Service Date/Time: Saturday, August 06, 2016 10:30 - CONCLUSION: Pacemaker as described above without pneumothorax. Woody Denis MD FACR Assessment and Plan Problem List: (1) CHF (congestive heart failure) Assessment and Plan: No SOB this a.m. Continue lopressor, Entresto. (2) Shortness of breath Assessment and Plan: Improved today. (3) Biventricular ICD (implantable cardioverter-defibrillator) in place Assessment and Plan: Stable s/p BiVICD implant. Keflex for 3 days. F/U with Dr. Ruiz in [address] Ruiz's PPM d/c instructions. Discussed Condition With BAUDILIO pt., RN, Dr. Ruiz. Problem Qualifiers (1) CHF (congestive heart failure): Qualified Code: I50.23 - Acute on chronic systolic congestive heart failure Izabela Victor Aug 07, 2016 09:05
--- NOTE | 2016-08-07 09:26 | HHI.PR ---
Subjective Remarks resting comfortably with no distress. denies chest pain or sob. wants to go home today. Objective Vitals Vital Signs Date Time Temp Pulse Resp B/P Pulse Ox O2 Delivery O2 Flow Rate FiO2 08/07/16 08:53 18 08/07/16 06:00 88 08/07/16 05:00 93 08/07/16 04:00 93 08/07/16 03:00 97.6 92 18 91/70 96 08/07/16 03:00 93 08/07/16 02:00 93 08/07/16 01:00 94 08/07/16 00:00 90 08/06/16 23:00 98.0 91 24 88/65 95 08/06/16 23:00 95 08/06/16 22:00 93 08/06/16 21:22 97 21 08/06/16 21:00 93 08/06/16 20:00 89 08/06/16 19:00 98.0 91 20 95/77 95 08/06/16 19:00 95 Room Air 08/06/16 19:00 93 08/06/16 16:00 92 08/06/16 11:00 84 I/O 08/06/16 08/06/16 08/06/16 08/07/16 08/07/16 08/07/16 07:00 15:00 23:00 07:00 15:00 23:00 Intake Total 482 ml 289 ml Output Total 600 ml 525 ml Balance -118 ml -236 ml Intake Oral 480 ml 240 ml IV Total 2 ml 49 ml Output Urine Total 600 ml 525 ml # Voids 3 # Bowel Movements 0 0 Result Diagram: 08/04/16 0427 08/04/16 0427 Imaging Last Impressions Chest X-Ray 08/06/16 0000 Signed Impressions: Service Date/Time: Saturday, August 06, 2016 10:30 - CONCLUSION: Pacemaker as described above without pneumothorax. Woody Denis MD FACR Objective Remarks GENERAL: This is a well-nourished, well-developed patient, in no apparent distress. CARDIOVASCULAR: Regular rate and regular rhythm without murmurs, gallops, or rubs. RESPIRATORY: Clear to auscultation. Breath sounds equal bilaterally. No wheezes , rales, or rhonchi. GASTROINTESTINAL: Abdomen soft, non-tender, nondistended. Normal, active bowel sounds MUSCULOSKELETAL: Extremities without clubbing, cyanosis, or edema. NEURO: Alert & Oriented x4 to person, place, time, situation. Moves all ext x4 Procedures cardiac cath. AICD placement. Medications and IVs Current Medications IV Flush (NS Flush) 2 ml UNSCH PRN IVF FLUSH AFTER USING IV ACCESS; Start 08/02 at 16:00; Stop 08/02/16 at 20:00; Status DC Aspirin (Aspirin) 325 mg ONCE ONCE PO Last administered on 08/02/16 16:59; Start 08/02/16 at 16:15; Stop 08/02/16 at 16:16; Status DC Albuterol Sulfate (Proair Hfa Inh) 2 puff Q4HR PRN INH SHORTNESS OF BREATH; Start 08/02/16 at 20:00 Digoxin (Lanoxin) 0.125 mg DAILY PO Last administered on 08/07/16 08:52; Start 08/03/16 at 09:00 Metoprolol Tartrate (Lopressor) 25 mg DAILY PO ; Start 08/03/16 at 09:00; Stop 08/03/16 at 09:00; Status DC Multivitamins (Theragran) 1 tab DAILY PO Last administered on 08/07/16 08:51; Start 08/03/16 at 09:00 Potassium Chloride (KCl) 10 meq DAILY PO Last administered on 08/07/16 08:52; Start 08/03/16 at 09:00 Tiotropium [place] (Spiriva Inh) 18 mcg DAILY INH Last administered on 09:00; Start 08/03/16 at 09:00 Torsemide (Demadex) 20 mg DAILY PO Last administered on 08/07/16 08:50; Start 08/03/16 at 09:00 IV Flush (NS Flush) 2 ml BID IVF Last administered on 08/02/16 20:31; Start at 21:00; Stop 08/03/16 at 10:08; Status DC IV Flush (NS Flush) 2 ml UNSCH PRN IVF FLUSH AFTER USING IV ACCESS; Start 08/02 at 20:00; Stop 08/03/16 at 10:08; Status DC Heparin Sodium (Porcine) (Heparin Inj) 5,000 units Q12H SQ Last administered on 08/02/16 20:30; Start 08/02/16 at 20:00; Stop 08/03/16 at 10:10; Status DC Metoprolol Tartrate (Lopressor) 12.5 mg BID PO Last administered on 08/07/16 08:53; Start 08/03/16 at 09:00 Nitroglycerin 0.5 inch 0.5 inch Q8HR TOPICAL Last administered on 08/04/16 13: 33; Start 08/03/16 at 14:00 Sodium Chloride (NS 1000 ml Inj) 1,000 ml @ 30 mls/hr Q24H IV ; Start 08/03/16 at 07:04; Stop 08/03/16 at 10:08; Status DC Diphenhydramine HCl (Benadryl) 25 mg SOFTWARE INSTALLATION ENGINEER PO ; Start 08/03/16 at 07:15; Stop 08/07/16 at 07:14; Status DC Diazepam (Valium) 5 mg SOFTWARE INSTALLATION ENGINEER PO ; Start 08/03/16 at 07:15; Stop 08/07/16 at 07:14; Status DC Miscellaneous (Pill Splitter) 1 ea UNSCH PRN OTHER SEE LABEL COMMENTS; Start at 07:30 Midazolam HCl 2 mg 2 mg STK-MED ONCE .ROUTE Last administered on 08/03/16 08: 36; Start 08/03/16 at 08:36; Stop 08/03/16 at 08:37; Status DC Sodium Chloride (NS 1000 ml Inj) 1,000 ml @ 83 mls/hr Q12H3M IV ; Start at 10:00; Stop 08/03/16 at 10:09; Status DC IV Flush (NS Flush) 2 ml BID IVF Last administered on 08/05/16 20:59; Start at 21:00; Stop 08/06/16 at 10:56; Status DC IV Flush (NS Flush) 2 ml UNSCH PRN IVF FLUSH AFTER USING IV ACCESS; Start 08/03 at 09:45; Stop 08/06/16 at 10:56; Status DC Miscellaneous Information 1 ONCE ONCE XX ; Start 08/03/16 at 09:45; Stop at 10:09; Status DC Ondansetron HCl (Zofran Inj) 4 mg Q4H PRN IV NAUSEA; Start 08/03/16 at 09:45; Stop 08/06/16 at 10:55; Status DC Iohexol (OMNIPAQUE 350 INJ (Diesel Truck Mechanic)) 100 ml STK-MED ONCE OTHER ; Start at 10:02; Stop 08/03/16 at 10:03; Status DC Sacubitril/ Valsartan (Entresto 24-26 Mg) 1 tab DAILY PO Last administered on 08:51; Start 08/04/16 at 09:00 Acetaminophen (Tylenol) 325 mg Q4H PRN PO PAIN SCALE 1 TO 10 Last administered on 08/07/16 08:51; Start 08/04/16 at 15:45 Torsemide (Demadex) 20 mg ONCE ONCE PO Last administered on 08/05/16 11:15; Start 08/05/16 at 11:15; Stop 08/05/16 at 11:16; Status DC Fentanyl Citrate (fentaNYL INJ) 100 mcg STK-MED ONCE .ROUTE ; Start 08/06/16 at 07:30; Stop 08/06/16 at 07:31; Status DC Midazolam HCl (Versed Inj) 2 mg STK-MED ONCE .ROUTE ; Start 08/06/16 at 07:31; Stop 08/06/16 at 07:32; Status DC Vancomycin HCl (Vancomycin Inj) 500 mg STK-MED ONCE .ROUTE Last administered on 08/06/16 07:56; Start 08/06/16 at 07:56; Stop 08/06/16 at 07:57; Status DC Lidocaine HCl (Xylocaine 2% Inj) 50 ml STK-MED ONCE .ROUTE Last administered on 08/06/16 07:56; Start 08/06/16 at 07:56; Stop 08/06/16 at 07:57; Status DC Vancomycin HCl (Vancomycin Inj) 1,000 mg STK-MED ONCE .ROUTE Last administered on 08/06/16 08:12; Start 08/06/16 at 07:56; Stop 08/06/16 at 07:57; Status DC Cefazolin Sodium (Ancef Inj) 2,000 mg STK-MED ONCE .ROUTE Last administered on 08/06/16 08:05; Start 08/06/16 at 07:56; Stop 08/06/16 at 07:57; Status DC Fentanyl Citrate (fentaNYL INJ) 100 mcg STK-MED ONCE .ROUTE ; Start 08/06/16 at 08:43; Stop 08/06/16 at 08:44; Status DC Midazolam HCl (Versed Inj) 2 mg STK-MED ONCE .ROUTE ; Start 08/06/16 at 09:30; Stop 08/06/16 at 09:31; Status DC Oxycodone/ Acetaminophen (Percocet 5-325 Mg) 1 tab Q4H PRN PO PAIN SCALE 1 TO 4; Start 08/06/16 at 10:30 Oxycodone/ Acetaminophen (Percocet 5-325 Mg) 2 tab Q4H PRN PO PAIN SCALE 5 TO 10 Last administered on 08/07/16 06:15; Start 08/06/16 at 10:30 Lorazepam (Ativan Inj) 0.5 mg UNSCH PRN IV ANXIETY; Start 08/06/16 at 10:30; Stop 08/07/16 at 10:29 Atropine Sulfate 0.5 mg 0.5 mg UNSCH PRN IV VAGAL REPONSE; Start 08/06/16 at 10 :30 Sodium Chloride (NS 250 ml Inj) 250 ml @ 500 mls/hr UNSCH X1 PRN IV VAGAL REPONSE; Start 08/06/16 at 10:30; Stop 08/07/16 at 10:29 Metoclopramide HCl (Reglan Inj) 10 mg Q4H PRN IV NAUSEA; Start 08/06/16 at 10: 30 Ondansetron HCl (Zofran Inj) 4 mg Q4H PRN IV NAUSEA; Start 08/06/16 at 10:30 Lidocaine HCl (Xylocaine 1% Inj (50 ml)) 10 ml UNSCH PRN INFIL SHEATH REMOVAL; Start 08/06/16 at 10:30; Stop 08/07/16 at 10:29 Bacitracin 0.9 gm 0.9 gm ONCE ONCE TOP ; Start 08/06/16 at 11:00; Stop at 11:01; Status DC Cefazolin Sodium/ Dextrose (Ancef 2 Gm Premix) 50 ml @ 100 mls/hr Q8H IV Last administered on 08/07/16 08:00; Start 08/06/16 at 16:00; Stop 08/07/16 at 08:29 ; Status DC IV Flush (NS Flush) 2 ml BID IVF Last administered on 08/07/16t 08:52; Start at 21:00 IV Flush (NS Flush) 2 ml UNSCH PRN IVF FLUSH AFTER USING IV ACCESS; Start 08/06 at 10:30 Cephalexin Monohydrate (Keflex) 500 mg Q8HR PO ; Start 08/07/16 at 14:00; Stop 08/10/16 at 13:59; Status UNV A/P Assessment and Plan A/P Coronary artery disease/acute on chronic systolic CHF Exacerbation Images reviewed chest x-ray shows streaky opacity of the lung bases most consistent with scarring. Cardiomegaly with no evidence of pulmonary edema. -s/p cardiac cath with mild to moderate coronary artery disease -resumed home medications torsemide, metoprolol,Entresto and digoxin. -s/p AICD placement cleared for discharge per cardiology. Discharge Planning dc home today with f/u by pcp and cardiology. see med list. [facility] was offered but the patient declined. d/w the patient. Jimmy Gatica MD Aug 07, 2016 09:26
[2016-08-07] MEDS ORDERED: CEPH500C PO (09:27)
--- NOTE | 2016-08-07 09:27 | HHI.DCPOC ---
Discharge Care Plan Diagnosis: (1) CAD (coronary artery disease) Your Health Problems Are: Chest Pain Goals to Promote Your Health * To prevent worsening of your condition and complications * To maintain your health at the optimal level Directions to Meet Your Goals Take your medications as prescribed Follow your dietary instruction Follow activity as directed Keep your appointments as scheduled Take your immunizations and boosters as scheduled If your symptoms worsen call your PCP, if no PCP go to Urgent Care Center or Emergency Room Smoking is Dangerous to Your Health. Avoid second hand smoke Call the 24-hour hour crisis hotline for domestic abuse at Jimmy Gatica MD Aug 07, 2016 09:27
--- NOTE | 2016-08-07 09:27 | HHI.DS ---
Discharge Summary Admission Date Aug 02, 2016 at 19:45 Discharge Date: Aug 07, 2016 Admitting Diagnosis Chest pain, CHF exacerbation (1) CHF exacerbation ICD Code: I50.9 Diagnosis: Principal Procedures cardiac cath. AICD placement. Brief History - From Admission 70-year-old male with a history of ME, CHF and diverticulosis presented to the ED with increasing shortness of breath and chest pain a duration of the last few weeks. Patient states for the last 2 weeks he has had shortness of breath that lasts on and off all day. He states some days are worse than others and it has caused him to be very restless. He says along with the shortness of breath he does experience chest pain that feels like intense pressure in the middle of his chest, he denies any radiation to his arm or jaw. He went to visit his garbage person Dr. Winkler today who sent him to the ED for a cardiac catheter in the a.m. Patient also complains of increased weight loss over the last few months, and it has also increased since being started on torsemide. He denies any appetite changes. CBC/BMP: 08/04/167 08/04/16426 Imaging Last Impressions Chest X-Ray 08/06/16 0000 Signed Impressions: Service Date/Time: Saturday, August 06, 2016 10:30 - CONCLUSION: Pacemaker as described above without pneumothorax. Woody Denis MD FACR PE at Discharge GENERAL: This is a well-nourished, well-developed patient, in no apparent distress. CARDIOVASCULAR: Regular rate and regular rhythm without murmurs, gallops, or rubs. RESPIRATORY: Clear to auscultation. Breath sounds equal bilaterally. No wheezes , rales, or rhonchi. GASTROINTESTINAL: Abdomen soft, non-tender, nondistended. Normal, active bowel sounds MUSCULOSKELETAL: Extremities without clubbing, cyanosis, or edema. NEURO: Alert & Oriented x4 to person, place, time, situation. Moves all ext x4 Hospital Course Coronary artery disease/acute on chronic systolic CHF Exacerbation Images reviewed chest x-ray shows streaky opacity of the lung bases most consistent with scarring. Cardiomegaly with no evidence of pulmonary edema. -s/p cardiac cath with mild to moderate coronary artery disease -resumed home medications torsemide, metoprolol,Entresto and digoxin. -s/p AICD placement cleared for discharge per cardiology Pt Condition on Discharge: Good Discharge Disposition: Discharge Home Discharge Time: <= 30 minutes Discharge Instructions DIET: Follow Instructions for: Heart Healthy Diet Activities you can perform: Regular-No Restrictions Other Activity Instructions: restrictions per 's instructions. Follow up Referrals: Cardiology PCP Follow-up New Medications: Cephalexin (Cephalexin) 500 Mg Cap 500 MG PO Q8HR antibiotic Days 3 Ref 0 CAP Metoprolol Tartrate (Metoprolol Tartrate) 25 Mg Tab 12.5 MG PO BID chf Days 30 Ref 0 TAB Sacubitril-Valsartan (Entresto) 24-26 Mg Tab 1 TAB PO DAILY chf Days 30 Ref 0 TAB Continued Medications: Albuterol 6.7 GM Inh (Proventil Hfa 6.7 GM Inh) 90 Mcg/Act Aer 2 PUFF INH Q4-6H PRN SHORTNESS OF BREATH #1 Ref 0 INHALER Digoxin (Digoxin) 0.125 Mg Tab 0.125 MG PO DAILY Regulate Heart Beat #30 Ref 0 TAB Garlic (Garlic) 200 Mg Tab 200 MG PO DAILY Multiple Vitamin (Multi-Vitamin Daily) 1 Tab Tab 1 TAB PO DAILY Nutritional Supplement Ref 0 TAB Potassium Chloride ER (Potassium Chloride ER) 10 Meq Cap 10 MEQ PO DAILY Electrolyte Replacement #30 Ref 0 CAP Tiotropium Inh (Spiriva Handihaler) 18 Mcg Cap 18 MCG INH DAILY 1 capsule = 18 mcg COPD #30 Ref 0 CAP Torsemide (Torsemide) 20 Mg Tab 20 MG PO DAILY #30 Ref 0 TAB Discontinued Medications: Metoprolol Tartrate (Lopressor) 50 Mg Tab 25 MG PO DAILY #15 Ref 0 TAB Jimmy Gatica MD Aug 07, 2016 09:27
[2016-08-07] MEDS ORDERED: OXYC1TAB63 PO ×2 (09:30)
[2016-08-07] MEDS ORDERED: CEPHALEXIN MONOHYDRATE 500 MG CAP PO SCH (14:00)
--- NOTE | 2016-08-07 17:39 | EKG ---
Date Performed: 08/07/2016 Time Performed: 05:25:54 PTAGE: 70 years EKG: Sinus rhythm LBBB Compared to prior tracing no significant change Abnormal ECG PREVIOUS TRACING : 08/06/2016 12.00 DOCTOR: Kari Win Interpretating Date/Time 08/07/2016 17:39:09
--- NOTE | 2016-08-07 17:39 | EKG ---
Date Performed: 08/06/2016 Time Performed: 12:00:34 PTAGE: 70 years EKG: Sinus rhythm LBBB Possible left atrial abnormality Left axis deviation IV conduction defect Left ventricular hype rtrophy Lateral ST-T changes may be due to hypertrophy and/or ischemia Compared to prior tracing no s ignificant change Abnormal ECG PREVIOUS TRACING : 08/02/2016 15.54 DOCTOR: Kari Win Interpretating Date/Time 08/07/2016 17:38:21
== END 2016-08-07 11:09 | disposition home or self-care (01) | DRG 223 ==
LOC: HCAT 15:28 → NEDA 19:45 → NEDH 08-03 00:50 → HCIS 08-03 13:13
PROVIDERS: ADMIT Internal Medicine; ATTEND Internal Medicine
PROC: B2111ZZ Fluoroscopy of Multiple Coronary Arteries using Low Osmolar Contrast (ICD-10-PCS; 2016-08-03)
PROC: B2151ZZ Fluoroscopy of Left Heart using Low Osmolar Contrast (ICD-10-PCS; 2016-08-03)
PROC: B41F1ZZ Fluoroscopy of Right Lower Extremity Arteries using Low Osmolar Contrast (ICD-10-PCS; 2016-08-03)
PROC: 4A023N7 Measurement of Cardiac Sampling and Pressure, Left Heart, Percutaneous Approach (ICD-10-PCS; principal; 2016-08-03 08:30)
PROC: 0JH608Z Insertion of Defibrillator Generator into Chest Subcutaneous Tissue and Fascia, Open Approach (ICD-10-PCS; 2016-08-06)
PROC: 02HK3KZ Insertion of Defibrillator Lead into Right Ventricle, Percutaneous Approach (ICD-10-PCS; 2016-08-06)
PROC: 02H63KZ Insertion of Defibrillator Lead into Right Atrium, Percutaneous Approach (ICD-10-PCS; 2016-08-06)
PROC: 02HL3KZ Insertion of Defibrillator Lead into Left Ventricle, Percutaneous Approach (ICD-10-PCS; 2016-08-06)
PROC: 4A0234Z Measurement of Cardiac Electrical Activity, Percutaneous Approach (ICD-10-PCS; 2016-08-06)
DX: I11.0 Hypertensive heart disease with heart failure (principal); J44.9 Chronic obstructive pulmonary disease, unspecified; I44.7 Left bundle-branch block, unspecified; I50.23 Acute on chronic systolic (congestive) heart failure; I25.5 Ischemic cardiomyopathy; I25.119 Atherosclerotic heart disease of native coronary artery with unspecified angina pectoris; H91.90 Unspecified hearing loss, unspecified ear; R63.4 Abnormal weight loss; M19.90 Unspecified osteoarthritis, unspecified site; I25.2 Old myocardial infarction; Z87.891 Personal history of nicotine dependence; Z95.5 Presence of coronary angioplasty implant and graft; Z86.14 Personal history of Methicillin resistant Staphylococcus aureus infection; Z86.711 Personal history of pulmonary embolism
CPT/HCPCS: 33225; 33249; 71010; 76937; 80048; 80162; 82550; 83735; 83880; 84484; 85025; 85027; 85347; 85610; 85730; 93005; 93458; 93620; C1730; C1760; C1769; C1777; C1779; C1882; C1893; C1900; G0269; J0690; J1644; J2250; J3010; J3370; Q9967